=== PATIENT | male | born 1950 | race Caucasian/White ===

== ENCOUNTER 2016-12-15 02:47 | Inpatient (IN) | payer BC, MEDICARE ==
[2016-12-15] MEDS ORDERED: ASPIRIN 81 MG CHEW PO STA (02:58)
[2016-12-15] MEDS ORDERED: NITROGLYCERIN SL TABS 0.4 MG TAB SUBLINGUAL STA (02:58)
[2016-12-15 03:23] LABS: Basophils % (A) 1 %; CH 30.5; CHCM 34.7; Eosinophils # (A) 0.2 k/uL (0-0.7); Eosinophils % (A) 4 %; HCT 41.4 % (39.0-53.0); HDW 3.56; HGB 13.9 gm/dL (13.0-17.5); Luc # (Auto) 0.08; Luc % (Auto) 2; Lymphocytes # (A) 1.5 k/uL (1.0-4.8); Lymphocytes % (A) 28 %; MCH 29.7 pg (25.0-35.0); MCHC 33.7 g/dL (31.0-37.0); MCV 88.2 fL (80.0-100.0); Mean Platelet Volume 6.9; Monocytes # (A) 0.4 k/uL (0-1.0); Monocytes % (A) 7 %; Neutrophils # (A) 3.3 k/uL (1.3-7.7); Neutrophils % (A) 60 %; Poikilocytosis Slight; RBC 4.69 m/uL (4.30-5.90); RDW 14.1 % (11.5-15.5); WBC 5.5 k/uL (3.8-10.6); WBC (Perox) 5.56
[2016-12-15 03:31] LABS: ALT 47 U/L (21-72); AST 19 U/L (17-59); Alkaline Phosphatase 70 U/L (38-126); Anion Gap 15 mmol/L; Blood Urea Nitrogen 17 mg/dL (9-20); Calcium 8.9 mg/dL (8.4-10.2); Carbon Dioxide 24 mmol/L (22-30); Chloride 105 mmol/L (98-107); Glucose 292 mg/dL (74-99); Magnesium 1.8 mg/dL (1.6-2.3); Non-African American GFR(MDRD) >60 (>60 ml/min/1.73 sqM); Potassium 4.1 mmol/L (3.5-5.1); Sodium 144 mmol/L (137-145); Total Bilirubin 0.7 mg/dL (0.2-1.3); Total Protein 6.8 g/dL (6.3-8.2)
[2016-12-15 03:41] LABS: Creatine Kinase 77 U/L (55-170)
[2016-12-15 03:54] LABS: Creatine Kinase MB 0.6 ng/mL (0.0-2.4); Troponin I <0.012 ng/mL (0.000-0.034)
--- NOTE | 2016-12-15 04:38 | XR ---
EXAMINATION TYPE: XR chest 1V portable DATE OF EXAM: 12/15/2016 4:00 AM COMPARISON: November 03, 2016 HISTORY: Chest pain shortness of breath few days TECHNIQUE: Single frontal view of the chest is obtained. FINDINGS: Mild perihilar opacities are noted with suggestion of mild pulmonary edema. There is no focal pneumonia pleural effusion, or pneumothorax seen. The cardiac silhouette size is w ithin normal limits. The osseous structures are intact. IMPRESSION: 1. Mild pulmonary edema. 2. No focal pneumonia.
[2016-12-15] MEDS ORDERED: NITROGLYCERIN SL TABS 0.4 MG TAB SUBLINGUAL PRN (05:50)
--- NOTE | 2016-12-15 06:05 | ED ---
Chest Pain HPI - General Chief Complaint: Chest Pain Stated Complaint: Chest Pain/SOB Time Seen by Provider: 12/15/16 02:57 Source: patient, RN notes reviewed Mode of arrival: wheelchair Limitations: no limitations - History of Present Illness Initial Comments: This patient is a 66-year-old man who presents with complaint that he was having some substernal left chest pain, pressure, moderate intensity, that came on tonight while he was trying to sleep. This was associated with feeling like he couldn't catch his breath. He states that things have improved somewhat since the onset of the symptoms but the pain had not completely resolved so he decided to be seen here. MD Complaint: chest pain -: hour(s) Onset: during rest Pain Location: left chest Quality: heaviness Consistency: constant Improves With: nothing Worsens With: nothing Anginal Symptoms: dyspnea Treatments Prior to Arrival: none - Related Data Home Medications Medication Instructions Recorded Confirmed Atorvastatin [Lipitor] 80 mg PO HS 11/03/16 12/15/16 [place]-3 Fatty Acids/Fish Oil [Fish 2 cap PO DAILY 11/03/16 12/15/16 Oil 1,000 mg Softgel] glipiZIDE [Glucotrol] 2.5 mg PO AC-BID 11/03/16 12/15/16 Atenolol [Tenormin] 50 mg PO DAILY 11/05/16 12/15/16 Lisinopril [Zestril] 2.5 mg PO HS 11/05/16 12/15/16 Aspirin EC [Ecotrin Low Dose] 81 mg PO DAILY 12/15/16 12/15/16 Indomethacin [Indocin] 50 mg PO BID 12/15/16 12/15/16 Previous Rx's Medication Instructions Recorded Nitroglycerin Sl Tabs [Nitrostat] 0.4 mg SUBLINGUAL Q5M PRN #35 tab 11/05/16 Prasugrel [Effient] 10 mg PO DAILY #30 tab 11/05/16 metFORMIN HCL [Glucophage] 500 mg PO BID #0 11/05/16 Allergies Allergy/AdvReac Type Severity Reaction Status Date / Time Sulfa (Sulfonamide Allergy Swelling Verified 12/15/16 02:53 Antibiotics) sulfamethoxazole Allergy Swelling Verified 12/15/16 02:53 [From Bactrim] trimethoprim [From Bactrim] Allergy Swelling Verified 12/15/16 02:53 Review of Systems ROS Statement: Those systems with pertinent positive or pertinent negative responses have been documented in the HPI. ROS Other: All systems not noted in ROS Statement are negative. Constitutional: Denies: fever, chills Eyes: Denies: vision change Respiratory: Reports: dyspnea. Denies: cough, wheezes Cardiovascular: Reports: as per HPI, chest pain. Denies: palpitations, edema, syncope Gastrointestinal: Denies: abdominal pain, nausea, vomiting, melena, hematochezia Genitourinary: Denies: dysuria Musculoskeletal: Denies: back pain Skin: Denies: rash Neurological: Denies: headache, weakness, numbness EKG Findings - EKG Results: EKG: interpreted by TABATHA, sinus rhythm (Rate approximately 90 bpm), normal axis , normal QRS, normal ST/T, no acute changes Past Medical History Past Medical History: Cancer, Chest Pain / Angina, Diabetes Mellitus, Hyperlipidemia, Hypertension, Myocardial Infarction ([place]), Thyroid Disorder Additional Past Medical History / Comment(s): bladder History of Any Multi-Drug Resistant Organisms: None Reported Past Surgical History: Heart Catheterization With Stent, Orthopedic Surgery Additional Past Surgical History / Comment(s): left hand surgery Date of Last Stent Placement:: 2007 Past Psychological History: No Psychological Hx Reported Smoking Status: Former smoker Past Alcohol Use History: None Reported Past Drug Use History: None Reported - Past Family History Father Family Medical History: Coronary Artery Disease (CAD) General Exam Limitations: no limitations General appearance: alert, in no apparent distress Head exam: Present: atraumatic, normocephalic Eye exam: Present: normal appearance. Absent: scleral icterus, conjunctival injection ENT exam: Present: normal oropharynx Neck exam: Present: normal inspection Respiratory exam: Present: normal lung sounds bilaterally. Absent: respiratory distress, wheezes, rales, rhonchi, stridor, chest wall tenderness Cardiovascular Exam: Present: regular rate, normal rhythm, normal heart sounds. Absent: systolic murmur, diastolic murmur, rubs, gallop GI/Abdominal exam: Present: soft. Absent: distended, tenderness, guarding, rebound Extremities exam: Present: normal inspection, normal capillary refill. Absent: pedal edema, calf tenderness Back exam: Present: normal inspection. Absent: CVA tenderness (R), CVA tenderness (L) Skin exam: Present: warm, dry, intact, normal color. Absent: rash, cyanosis, diaphoretic, erythema, petechiae, pallor, mottled Course Vital Signs 12/15/16 12/15/16 02:50 03:24 Temperature 98.0 F Pulse Rate 96 89 Respiratory 18 20 Rate Blood Pressure 200/95 179/91 O2 Sat by Pulse 97 Oximetry Disposition Clinical Impression: Chest pain Disposition: ADMITTED IP TO THIS HOSP Condition: Fair
[2016-12-15 08:17] VITALS: BMI 33.5
[2016-12-15] MEDS ORDERED: NON-FORMULARY DRUG (Omega-3 Fatty Acids/Fish Oil [Fish Oil 1,000 Mg Softgel] 2 CAP) PO SCH (09:00)
[2016-12-15 10:29] LABS: Troponin I 0.066 ng/mL (0.000-0.034)
--- NOTE | 2016-12-15 11:31 | P.CRDCN ---
History of Present Illness Consult reason: chest pain, shortness of breath History of present illness: Male patient admitted with mild shortness of breath and vague discomfort OR chest. The discomfort is very different from what he experienced in October 2016 when he had coronary stenting to the left circumflex which had a critical stenosis of the mid left circumflex At this time he looks comfortable he does not have any chest discomfort or undue shortness of breath no dizziness lightheadedness palpitations Review of systems: No fever chills or rigors, no cough, phlegm or expectoration , no nausea, vomiting or diarrhea, no hematuria, dysuria, no musculoskeletal complaints, no strokes or seizures, no skin lesions. On examination his blood pressure is 133/74 mmHg temperature 97.7 respirations normal but pressure 179/91 and 138/72 mmHg Heart sounds are normal Breath sounds are normal Abdomen is soft No JVD No lower extremity edema No murmurs or gallops No rhonchi no crackles Impression atypical chest discomfort or shortness of breath, first cardiac enzyme is normal second cardiac enzyme is abnormal at 0.66 ECG is normal no definite ST segment abnormalities noted Known coronary artery disease status post stenting of the critical stenosis of the mid left circumflex Normal LV function by 2-D echo in the past RV is mildly enlarged Diabetes adult-onset Hypertension Dyslipidemia Chemical evidence of myocardial injury Plan Serial cardiac enzymes IV heparin Continue home medications without any changes I would like to see the trend of his cardiac enzymes before making further recommendations and I will speak to Dr. Dr. Albrecht about this on Saturday Past Medical History Past Medical History: Cancer, Chest Pain / Angina, Diabetes Mellitus, Hyperlipidemia, Hypertension, Myocardial Infarction ([place]), Thyroid Disorder Additional Past Medical History / Comment(s): bladder Last Myocardial Infarction Date:: October 2016 History of Any Multi-Drug Resistant Organisms: None Reported Past Surgical History: Heart Catheterization With Stent, Orthopedic Surgery Additional Past Surgical History / Comment(s): left hand surgery Date of Last Stent Placement:: 2007 Past Psychological History: No Psychological Hx Reported Smoking Status: Former smoker Past Alcohol Use History: None Reported Past Drug Use History: None Reported - Past Family History Father Family Medical History: Coronary Artery Disease (CAD) Medications and Allergies Home Medications Medication Instructions Recorded Confirmed Type Atorvastatin [Lipitor] 80 mg PO HS 11/03/16 12/15/16 History [place]-3 Fatty Acids/Fish Oil [Fish 2 cap PO DAILY 11/03/16 12/15/16 History Oil 1,000 mg Softgel] glipiZIDE [Glucotrol] 2.5 mg PO AC-BID 11/03/16 12/15/16 History Atenolol [Tenormin] 50 mg PO DAILY 11/05/16 12/15/16 History Lisinopril [Zestril] 2.5 mg PO HS 11/05/16 12/15/16 History Aspirin EC [Ecotrin Low Dose] 81 mg PO DAILY 12/15/16 12/15/16 History Indomethacin [Indocin] 50 mg PO BID 12/15/16 12/15/16 History Allergies Allergy/AdvReac Type Severity Reaction Status Date / Time Sulfa (Sulfonamide Allergy Swelling Verified 12/15/16 02:53 Antibiotics) sulfamethoxazole Allergy Swelling Verified 12/15/16 02:53 [From Bactrim] trimethoprim [From Bactrim] Allergy Swelling Verified 12/15/16 02:53 Physical Exam Vitals: Vital Signs Temp Pulse Pulse Resp BP BP Pulse Ox 12/15/16 08:00 20 12/15/16 07:30 97.7 F 70 16 133/74 95 12/15/16 06:45 97.1 F L 71 20 138/72 99 Intake and Output 12/14/16 12/15/16 12/15/16 22:59 06:59 14:59 Other: Voiding Method Toilet Weight 108.6 kg Patient Weight 12/16/16 06:59 Weight 108.6 kg Results 12/15/16 03:13 12/15/16 03:13 Cardiac Enzymes 12/15/16 Range/Units 09:12 CK-MB (CK-2) 1.0 (0.0-2.4) ng/mL Troponin I 0.066 H* (0.000-0.034) ng/mL Current Medications Generic Name Dose Route Start Last Admin Trade Name Freq PRN Reason Stop Dose Admin Aspirin 325 mg 12/16/16 09:00 Aspirin PO DAILY [facility] Atenolol 50 mg 12/15/16 09:00 Tenormin PO DAILY [facility] Atorvastatin Calcium 80 mg 12/15/16 21:00 Lipitor PO HS [facility] Glipizide 2.5 mg 12/15/16 07:30 Glucotrol PO AC-BID [facility] Lisinopril 2.5 mg 12/15/16 21:00 Zestril PO HS [facility] Metformin HCl 500 mg 12/15/16 07:30 Glucophage PO BID-W/MEALS [facility] Nitroglycerin 0.4 mg 12/15/16 05:50 Nitrostat SUBLINGUAL Q5M PRN Chest Pain Non-Formulary Medication 2 cap 12/15/16 09:00 [place]-3 Fatty Acids/Fish Oil [Fish Oil 1,000 Mg Softgel] PO DAILY [facility] Prasugrel 10 mg 12/15/16 09:00 Effient PO DAILY [facility] Intake and Output 12/14/16 12/15/16 12/15/16 22:59 06:59 14:59 Other: Voiding Method Toilet Weight 108.6 kg Patient Weight 12/16/16 06:59 Weight 108.6 kg
[2016-12-15] MEDS: metFORMIN 500 MG TAB PO SCH ×2 (11:32→18:06)
[2016-12-15] MEDS: ATENOLOL 50 MG TAB PO SCH (11:32)
[2016-12-15] MEDS: PRASUGREL 10 MG TAB PO SCH (11:32)
[2016-12-15 11:47] LABS: Glucose,Whole Blood 131 mg/dL (75-99)
[2016-12-15] MEDS ORDERED: HEPARIN SODIUM,PORCINE 5,000 UNIT/ML 1 ML VIAL IV ONE (11:50)
[2016-12-15] MEDS ORDERED: HEPARIN SODIUM,PORCINE 5,000 UNIT/ML 1 ML VIAL IV PRN (11:50)
[2016-12-15] MEDS: HEPARIN SODIUM,PORCINE/D5W PMX 25,000 UNIT in DEXTROSE/WATER 1 500ML.BAG IV SCH (12:32)
[2016-12-15] MEDS: predniSONE 20 MG TAB PO SCH (14:26)
[2016-12-15 16:44] LABS: Creatine Kinase MB 0.8 ng/mL (0.0-2.4)
[2016-12-15 16:58] LABS: Troponin I 0.055 ng/mL (0.000-0.034)
--- NOTE | 2016-12-15 17:16 | HP ---
DATE OF ADMISSION: 12/15/2016 PRESENTING COMPLAINT: Chest pain. HISTORY OF PRESENTING COMPLAINT: This is a 66-year-old patient of Dr. Telles, the patient was here on 11/03/2016. Patient at that time had an acute non-ST elevation myocardial infarction, patient did have a cardiac catheterization intervention to the circumflex. The patient's other stable chronic medical conditions include diabetes mellitus type 2, hyperlipidemia, hypertension, and COPD. The patient states for the last few days feeling a bit slightly short of breath, especially when he was laying down and then had an episode of chest pain going across, felt shaky, dizzy and decided to come in. Patient exercise tolerance ( ) is fine. The patient in the presence of his neighbor, lady friend. REVIEW OF SYSTEMS: CONSTITUTIONAL: Tired. HEENT: None. RESPIRATORY: Occasional wheezing. CARDIOVASCULAR: As above. GASTROINTESTINAL: None. GENITOURINARY: None. MUSCULOSKELETAL: None. Dermatological: None. HEMATOLOGICAL: None. LYMPHATIC: None. PSYCHIATRY: None. NEUROLOGICAL: None. PAST MEDICAL HISTORY: Cardiac cath with stent 8 years ago and over a month ago, left hand surgery. SOCIAL HISTORY: No alcohol history. Was an ex-smoker. Lives by himself he says. Family history of coronary artery disease. HOME MEDICATIONS: 1. Metformin 500 mg p.o. b.i.d. 2. Glucotrol 2.5 p.o. b.i.d. 3. Effient 10 mg p.o. daily. 4. Fish oil 2 capsules p.o. daily. 5. Nitrostat 0.4 sublingual q.5 p.r.n. 6. Zestril 2.5 p.o. q.h.s. 7. Indocin 50 mg p.o. b.i.d. 8. Lipitor 80 mg q.h.s. 9. Tenormin 50 mg p.o. daily. 10. Aspirin 81 mg daily. ALLERGIES TO SULFUR, BACTRIM. On examination vital signs on presentation: Temperature 98, pulse 96, respiratory rate 18, blood pressure 200/95. Repeat blood pressure down to 130/72, pulse ox 99% on room air. GENERAL APPEARANCE: Well built, BMI of 32.4. Lying in bed, comfortable. EYES: Pupils equal. Conjunctivae normal. HEENT: External appearance of nose and ears normal. Oral cavity normal. NECK: JVD not raised. Mass not palpable. RESPIRATORY: Effort normal. Lungs are clear. CARDIOVASCULAR: First and second sounds normal. No edema. ABDOMEN: Soft, nontender. Liver and spleen not palpable. LYMPHATIC: No lymph nodes palpable in the neck and axillae. PSYCHIATRY: Alert and oriented times three. Mood and affect normal. MUSCULOSKELETAL: Redness, inflammation, local tenderness the right first MCP joint. Investigations: White count 5.4, hemoglobin 13.9, potassium 4.1. BUN and creatinine normal. Accu-Cheks noted. Troponin was 0.012, 0.66. EKG shows normal sinus rhythm. ASSESSMENT: 1. Unstable angina in a patient with known coronary disease with stent to the circumflex in October of this year. Now she presents with cardiac sounding presentation where troponin started to creep up. 2. Coronary artery disease with recent stent to the circumflex on 11/03/2016. 3. Obesity, body mass index greater than 30. 4. Diabetes mellitus type 2 on oral hypoglycemic. 5. Hyperlipidemia, chronic. 6. Essential hypertension, chronic, controlled. 7. Chronic obstructive pulmonary disease in an ex-smoker. 8. Acute gout to the right first metacarpal pharyngeal joint. PLAN: Patient is put on IV heparin. Home medications are resumed. Cardiology was consulted. We will see how the troponin goes. Given the negative effects of NSAIDS, we will stop the patient Indocin right now and use a burst of steroids. Care was discussed with the patient and his friend at the bedside. Home medications will be continued. The patient will need to be inpatient for at least 48 hours of inpatient stay.
[2016-12-15 17:47] LABS: Glucose,Whole Blood 125 mg/dL (75-99)
[2016-12-15 20:28] LABS: Glucose,Whole Blood 253 mg/dL (75-99)
[2016-12-15] MEDS: ATORVASTATIN 80 MG TAB PO SCH (21:00)
[2016-12-15] MEDS: LISINOPRIL 2.5 MG TAB PO SCH (21:00)
[2016-12-16 03:47] LABS: Cholesterol 102 mg/dL (<200); HDL Cholesterol 29 mg/dL (40-60); Triglycerides 107 mg/dL (<150)
[2016-12-16 07:37] LABS: Glucose,Whole Blood 125 mg/dL (75-99)
[2016-12-16] MEDS: predniSONE 20 MG TAB PO SCH (07:43)
[2016-12-16] MEDS: ASPIRIN 325 MG TAB PO SCH (07:43)
[2016-12-16] MEDS: PRASUGREL 10 MG TAB PO SCH (07:43)
[2016-12-16] MEDS: metFORMIN 500 MG TAB PO SCH ×2 (07:43→16:45)
[2016-12-16] MEDS: ATENOLOL 50 MG TAB PO SCH (08:34)
[2016-12-16 12:21] LABS: Glucose,Whole Blood 153 mg/dL (75-99)
[2016-12-16 13:18] LABS: Hemoglobin A1C 5.9 % (4.2-6.1)
--- NOTE | 2016-12-16 14:52 | P.PN ---
Subjective Principal diagnosis: Patient had another episode of shortness of breath with vague discomfort but this was fairly brief. He was still on IV heparin I sent off for cardiac enzymes and there is a definite and a very small rise followed by a fall in the troponin levels Review of systems On examination Vitals are stable No JVD no thyromegaly no carotid bruits Normal S1 normal S2, normal heart sounds Breath sounds are normal no rhonchi no crackles equal breath sounds bilaterally Abdomen is soft nontender Extremities warm no edema Impression Chest discomfort and shortness of breath with associated troponin abnormality as described above Known coronary artery disease status post coronary stenting of a critical stenosis in the mid left circumflex in the past Normal LV, mildly enlarged right ventricle Hypertension Dyslipidemia Adult-onset diabetes Suggest Continue IV heparin and other medications and I will speak to Dr. Dr. Albrecht tomorrow regarding coronary angiography Objective - Vital Signs Vital signs: Vital Signs Temp 98 F 12/16/16 08:00 Pulse 69 12/16/16 12:00 Resp 18 12/16/16 12:00 BP 139/81 12/16/16 12:00 Pulse Ox 95 12/16/16 13:01 Intake & Output 12/15/16 12/16/16 12/16/16 18:59 06:59 18:59 Intake Total 400 Balance 400 Intake: Oral 400 Other: Voiding Method Toilet Toilet Toilet # Voids 3 1 2 - Labs CBC & Chem 7: 12/15/16 03:13 12/15/16 03:13 Labs: Abnormal Lab Results - Last 24 Hours (Table) 12/15/16 12/15/16 12/15/16 Range/Units 15:57 17:43 18:54 APTT 32.0 H (22.0-30.0) sec POC Glucose (mg/dL) 125 H (75-99) mg/dL Troponin I 0.055 H* (0.000-0.034) ng/mL HDL Cholesterol (40-60) mg/dL 12/15/16 12/16/16 12/16/16 Range/Units 20:25 03:12 03:12 APTT 46.6 H (22.0-30.0) sec POC Glucose (mg/dL) 253 H (75-99) mg/dL Troponin I (0.000-0.034) ng/mL HDL Cholesterol 29 L (40-60) mg/dL 12/16/16 12/16/16 Range/Units 07:33 12:19 APTT (22.0-30.0) sec POC Glucose (mg/dL) 125 H 153 H (75-99) mg/dL Troponin I (0.000-0.034) ng/mL HDL Cholesterol (40-60) mg/dL
[2016-12-16 17:31] LABS: Glucose,Whole Blood 187 mg/dL (75-99)
[2016-12-16] MEDS: ATORVASTATIN 80 MG TAB PO SCH (21:08)
[2016-12-16] MEDS: LISINOPRIL 2.5 MG TAB PO SCH (21:08)
[2016-12-16 21:17] LABS: Glucose,Whole Blood 241 mg/dL (75-99)
[2016-12-17] MEDS: HEPARIN SODIUM,PORCINE/D5W PMX 25,000 UNIT in DEXTROSE/WATER 1 500ML.BAG IV SCH (02:52)
[2016-12-17 07:05] LABS: Glucose,Whole Blood 110 mg/dL (75-99)
[2016-12-17] MEDS ORDERED: ATORVASTATIN 80 MG TAB PO STA (09:00)
[2016-12-17] MEDS ORDERED: ALPRAZolam 0.5 MG TAB PO PRN (09:00)
[2016-12-17] MEDS ORDERED: NITROGLYCERIN SL TABS 0.4 MG TAB SUBLINGUAL PRN (09:00)
[2016-12-17] MEDS ORDERED: ALPRAZolam 0.25 MG TAB PO PRN (09:00)
[2016-12-17] MEDS ORDERED: ASPIRIN 325 MG TAB PO STA (09:00)
[2016-12-17] MEDS ORDERED: SODIUM CHLORIDE 0.9% 1,000 ML in EMPTY BAG 1 BAG IV ONE (09:00)
[2016-12-17] MEDS: ASPIRIN 325 MG TAB PO SCH (09:07)
[2016-12-17] MEDS: PRASUGREL 10 MG TAB PO SCH (09:07)
[2016-12-17] MEDS: metFORMIN 500 MG TAB PO SCH ×2 (09:07→16:45)
[2016-12-17] MEDS: ATENOLOL 50 MG TAB PO SCH (09:08)
[2016-12-17] MEDS: predniSONE 20 MG TAB PO SCH (09:24)
--- NOTE | 2016-12-17 10:36 | PN ---
Mr. Randhawa is resting comfortably in bed. He continues to have intermittent episodes of chest discomfort which is very mild midsternal and brief. He did have positive cardiac enzymes with rise and fall trend. Although it was a minor increase. His blood pressure is still elevated at 140s and 150s and therefore I am increasing the dose of Lisinopril to 5 mg p.o. today. On examination, his blood pressure was elevated, 155/92, 144/71 and heart rates are in the 60s. Head and neck examination is normal. He is afebrile. No JVD, thyromegaly, or carotid bruits. Heart sounds S1, S2 are normal and soft. No murmurs. No gallops. Breath sounds are normal. No rhonchi. No crackles. ABDOMEN: Soft, nontender. EXTREMITIES: Warm. No edema. IMPRESSION: 1. Small non-Q wave myocardial infarction associated with chest discomfort and shortness of breath. 2. Hypertension. 3. Prior coronary artery disease, status post coronary stenting. Suggest: Increase Lisinopril to 5 mg p.o. daily. I will schedule him for a coronary angiogram with Dr. Albrecht for tomorrow. I will speak to Dr. Albrecht regarding this tomorrow.
[2016-12-17] MEDS: LISINOPRIL 5 MG TAB PO SCH (11:38)
--- NOTE | 2016-12-17 11:41 | PN ---
DATE OF SERVICE: 12/16/2016 PRESENTING COMPLAINT: Chest pain. INTERVAL HISTORY: This patient with known coronary artery disease presented with unstable angina. Did have a troponin leak awaiting a probable cardiac catheterization. The patient has had a couple more episodes of some shortness of breath. Review of systems done for constitutional, cardiovascular, GI, pulmonary; relevant findings as above. Current medications include IV heparin. On examination, temperature 98, pulse 86, respirations 14, blood pressure 150/84, pulse 92% on room air. GENERAL APPEARANCE: Lying in bed, tired appearing. EYES: Pupils equal. Conjunctivae normal. NECK: JVD not raised. Mass not palpable. RESPIRATORY: Effort normal. Lungs are clear. CARDIOVASCULAR: First and second sounds normal. No edema. ABDOMEN: Soft. Nontender. Liver and spleen not palpable. PSYCHIATRY: Alert and oriented x3. Mood and affect normal. INVESTIGATIONS: Accu-Cheks are noted. Troponin was less than 0.012 and 0.066 and 0.025. ASSESSMENT: 1. Unstable angina in a patient with known coronary artery disease with stent to the circumflex in October of this year, presented with cardiac sounding presentation. 2. Coronary artery disease stent to the circumflex on 11/03/2016. 3. Obesity, body mass index greater than 30. 4. Diabetes mellitus ( ) oral hypoglycemic. 5. Hyperlipidemia, chronic. 6. Essential hypertension. 7. Chronic obstructive pulmonary disease in an ex-smoker. 8. Acute ( ) right first ( ) joint. 9. IV heparin monitoring for therapeutic level. PLAN: Care was discussed with the patient. The patient already on IV heparin. Await possible cardiac catheterization.
[2016-12-17 11:54] LABS: Glucose,Whole Blood 132 mg/dL (75-99)
[2016-12-17 17:00] LABS: Glucose,Whole Blood 195 mg/dL (75-99)
[2016-12-17 20:53] LABS: Glucose,Whole Blood 204 mg/dL (75-99)
[2016-12-17] MEDS: ATORVASTATIN 80 MG TAB PO SCH (22:37)
[2016-12-18 06:15] LABS: Glucose,Whole Blood 107 mg/dL (75-99)
[2016-12-18] MEDS: ATENOLOL 50 MG TAB PO SCH (06:50)
[2016-12-18] MEDS: metFORMIN 500 MG TAB PO SCH (06:50)
[2016-12-18] MEDS: ASPIRIN 325 MG TAB PO SCH (06:50)
[2016-12-18] MEDS: LISINOPRIL 5 MG TAB PO SCH (06:51)
[2016-12-18] MEDS: PRASUGREL 10 MG TAB PO SCH (06:51)
[2016-12-18] MEDS: predniSONE 20 MG TAB PO SCH (06:51)
--- NOTE | 2016-12-18 07:07 | PN ---
DATE OF SERVICE: 12/17/2016 PRESENTING COMPLAINT: Chest pain. INTERVAL HISTORY: This patient with known coronary artery disease presented with unstable angina. Did have a troponin leak. Awaiting cardiac catheterization. Patient did get up and walk this morning. Had another episode of chest pain. Currently sitting in bed. Review of systems done for constitutional, cardiovascular, GI, pulmonary; relevant findings as above. Current medications are reviewed. On examination, temperature 97.5, pulse 75, respirations 18, blood pressure 153/82, pulse ox 96% on room air. GENERAL APPEARANCE: Sitting up, comfortable. EYES: Pupils equal. Conjunctivae normal. NECK: JVD not raised. Mass not palpable. RESPIRATORY: Effort normal. Lungs are clear. CARDIOVASCULAR: First and second sounds normal. No edema. ABDOMEN: Soft, nontender. Liver and spleen not palpable. PSYCHIATRY: Alert and oriented x3. Mood and affect normal. INVESTIGATIONS: No blood work from today. ASSESSMENT: 1. Unstable angina in a patient with known coronary artery disease with known history of cardiac cath with a known stent to the circumflex in October of 2016. 2. Obesity, body mass index greater than 30. 3. Diabetes mellitus type 2, chronically on oral hypoglycemic. 4. Hyperlipidemia, chronic. 5. Essential hypertension. 6. Chronic obstructive pulmonary disease in an ex-smoker. 7. Acute gout of right metacarpophalangeal joint, improved. 8. IV heparin monitoring. PLAN: Continue current medication and treatment plan. Await cardiac catheterization.
[2016-12-18] MEDS ORDERED: fentaNYL (PF) 50 MCG/ML 2 ML AMP ONE (11:21)
[2016-12-18] MEDS ORDERED: VERAPAMIL 2.5 MG/ML 2 ML AMP ONE (11:21)
[2016-12-18] MEDS ORDERED: HEPARIN SODIUM 1,000 UNIT/ML VIAL ONE (11:21)
[2016-12-18] MEDS ORDERED: diphenhydrAMINE 50 MG/ML 1 ML VIAL ONE (11:21)
[2016-12-18] MEDS ORDERED: LIDOCAINE 2% INJ 20 MG/ML (20 ML MDV) ONE (11:21)
[2016-12-18] MEDS ORDERED: SODIUM CHLORIDE 0.9% (PF) 10 ML VIAL ONE (11:21)
[2016-12-18 11:58] LABS: Glucose,Whole Blood 160 mg/dL (75-99)
[2016-12-18] MEDS ORDERED: LIDOCAINE 2% INJ 20 MG/ML SQ ONE ×2 (12:13→12:36)
[2016-12-18] MEDS ORDERED: diphenhydrAMINE 50 MG/ML 1 ML VIAL IVP ONE (12:15)
[2016-12-18] MEDS ORDERED: fentaNYL (PF) 50 MCG/ML 2 ML AMP IV ONE (12:16)
[2016-12-18] MEDS ORDERED: SODIUM CHLORIDE 0.9% 1,000 ML IV ONE (12:17)
[2016-12-18] MEDS ORDERED: VERAPAMIL SYRINGE (5 MG/10 ML) INTRAARTER ONE (12:21)
[2016-12-18] MEDS ORDERED: MIDAZOLAM 2 MG/2 ML VIAL ONE (12:34)
[2016-12-18] MEDS ORDERED: MIDAZOLAM 2 MG/2 ML VIAL IVP ONE (12:36)
[2016-12-18] MEDS ORDERED: BIVALIRUDIN BOLUS 250 MG/50 ML IV ONE (13:05)
[2016-12-18] MEDS ORDERED: BIVALIRUDIN 250 MG in SODIUM CHLORIDE 0.9% 50 ML IV ONE (13:05)
[2016-12-18] MEDS ORDERED: IOHEXOL 350 MG/ML 100 ML BOTTLE INJ ONE (13:14)
[2016-12-18] MEDS ORDERED: MAG HYDROX/AL HYDROX/SIMETH 30 ML CUP PO PRN (13:19)
[2016-12-18] MEDS ORDERED: ZOLPIDEM 5 MG TAB PO PRN (13:19)
[2016-12-18] MEDS ORDERED: RX INFO: IV CONTRAST WAS GIVEN 1 EACH MISC MISCELLANE PRN (13:19)
[2016-12-18] MEDS ORDERED: NITROGLYCERIN SL TABS 0.4 MG TAB SUBLINGUAL PRN (13:19)
[2016-12-18] MEDS ORDERED: SODIUM CHLORIDE 0.9% 1,000 ML IV SCH (13:30)
[2016-12-18 16:58] LABS: Glucose,Whole Blood 222 mg/dL (75-99)
[2016-12-18 20:47] LABS: Glucose,Whole Blood 172 mg/dL (75-99)
[2016-12-18] MEDS: ATORVASTATIN 80 MG TAB PO SCH (21:06)
--- NOTE | 2016-12-18 21:42 | PN ---
DATE OF SERVICE: 12/18/2016 PRESENTING COMPLAINT: Unstable angina. INTERVAL HISTORY: This patient with known coronary artery disease to undergo cardiac catheterization today, I do not have the formal results. Patient did have a stent placed, lying in bed comfortable. is at the bedside. No chest pain. No shortness of breath. Review of systems done for constitutional, cardiovascular; gastroenterology, relevant findings as above. Current medications are reviewed. On examination, temperature 96.8, pulse 60, respiration 6, pulse 74, respiratory rate 16, blood pressure 142/82, pulse 92% on 2 liters. GENERAL APPEARANCE: Sitting up, comfortable. EYES: Pupils equal. Conjunctivae normal. NECK: JVD not raised. Mass not palpable. RESPIRATORY: Effort normal. Lungs are clear. CARDIOVASCULAR: First and second sounds normal. No edema. ABDOMEN: Soft, nontender. Liver and spleen not palpable. PSYCHIATRY: Alert and oriented times three. Mood and affect normal. INVESTIGATIONS: Accu-Cheks are noted. ASSESSMENT: 1. Coronary artery disease with cardiac cath intervention and stent I do not have a formal report. 2. Coronary artery disease with prior history of stent to the circumflex in November 09. 3. Obesity, body mass index greater than 30. 4. Diabetes mellitus type 2, chronically on oral hypoglycemic. 5. Hyperlipidemia, chronic. 6. Essential hypertension. 7. Chronic obstructive pulmonary disease in an ex-smoker. 8. Acute ( ) metacarpal ( ) on presentation: Improved. PLAN: Care was discussed with the patient. Continue current medication and treatment plan. Repeat labs in the morning.
[2016-12-19 06:15] LABS: Glucose,Whole Blood 105 mg/dL (75-99)
--- NOTE | 2016-12-19 06:17 | CC ---
DATE OF SERVICE: Mr. Randhawa is a 66-year-old male with a known history of coronary artery disease, status post percutaneous revascularization of the left circumflex most recently done in October 2016 who presented with symptoms of chest discomfort as well as dyspnea. In view of that, recommendation was made regarding cardiac catheterization. The procedure as well as risks and complications were discussed with the patient who is in full understanding and agreement. 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 He was draped and prepped in the usual conventional fashion. Using Xylocaine anesthesia and Seldinger technique, a 6-Kinyarwanda sheath was introduced in the right radial artery. The wire was advanced into the ascending aorta, but multiple attempts to advance a catheter beyond the brachial area were unsuccessful. At that point, the catheter and the wire were removed and using Seldinger technique a 6-Kinyarwanda sheath was introduced in right femoral artery. Selective right and left coronary angiography was performed using 6-Kinyarwanda 4 bend right and left Cong catheters. Multiple views of the coronary arteries including hemiaxial views were obtained. Following this, a 6-Kinyarwanda tight pigtail catheter was introduced into left ventricle and pressures were calculated. Following that, catheter was removed. Images were reviewed. FINDINGS: LEFT MAIN: This is a large-size vessel bifurcating into the left circumflex and left anterior descending artery. The left main coronary artery is without any obstructive disease. LEFT ANTERIOR DESCENDING ARTERY: This is a large-size vessel reaching toward the apex with a wrap around apex segment. 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 The rest of the vessel has no high-grade stenosis. LEFT CIRCUMFLEX: This is a nondominant vessel, giving rise to 2 obtuse marginal branches. The stented segment in proximal and mid left circumflex are patent. There is no evidence of significant obstructive disease. The flow into the second obtuse marginal branch is TORY-2 flow. There is a lesion at the takeoff , jailed by the stent. RIGHT CORONARY ARTERY: This vessel is totally occluded proximally with ipsilateral as well as contralateral collaterals. LEFT VENTRICULOGRAM: Left ventriculogram was not performed. HEMODYNAMICS: There was no gradient across the aortic valve. The left ventricular end-diastolic pressure was 16 to 20 mmHg. CONCLUSION: 1. Patent stented segment of the left circumflex. 2. Chronically occluded right coronary artery. 3. Moderate significant disease in the mid left anterior descending artery. RECOMMENDATIONS: In view of finding anatomy, I have recommended proceeding with angioplasty and stenting of the LAD. The procedure as well as the risks and complications were discussed with the patient who is in full understanding and agreement. TRAVIS
[2016-12-19 06:29] LABS: Basophils # (A) 0.1 k/uL (0-0.2); Basophils % (A) 1 %; CH 30.2; CHCM 33.6; Eosinophils # (A) 0.1 k/uL (0-0.7); Eosinophils % (A) 1 %; HCT 39.8 % (39.0-53.0); HDW 3.43; HGB 13.2 gm/dL (13.0-17.5); Luc # (Auto) 0.15; Luc % (Auto) 2; Lymphocytes % (A) 24 %; MCH 29.9 pg (25.0-35.0); MCHC 33.1 g/dL (31.0-37.0); MCV 90.4 fL (80.0-100.0); Mean Platelet Volume 6.7; Monocytes # (A) 0.7 k/uL (0-1.0); Monocytes % (A) 8 %; Neutrophils # (A) 5.3 k/uL (1.3-7.7); Neutrophils % (A) 64 %; Poikilocytosis Slight; RDW 14.6 % (11.5-15.5); WBC 8.3 k/uL (3.8-10.6); WBC (Perox) 8.47
--- NOTE | 2016-12-19 06:30 | PTCA ---
DATE OF SERVICE: Mr. Randhawa is a 66-year-old male with a known history of coronary artery disease, who presented with symptoms of chest discomfort and mild elevation of troponin, underwent cardiac catheterization, was found to have a patent stent to the left circumflex with moderate disease in the mid LAD. In view of that, recommendation regarding angioplasty and stenting. The procedure as well as the risks and complications were discussed with the patient who is in full understanding and agreement. PROCEDURE: A 6 Samoan FR4 guiding catheter was introduced system. After cannulating the left main, a 0.014 balanced medium weight J-wire was advanced across the lesion, positioned distally. Subsequently attempt to advance a 2.75 x 15 mm Xience Alpine stent were unsuccessful that stent was removed and an another 0.014 balanced medium weight J-wire was advanced next to the first one in a gricelda fashion. Subsequently the stent was advanced, deployed and post dilated at 14 atmospheres. After the last inflation, after appropriate wait, the balloon and the guidewire withdrawn back in the guiding catheter. Images were obtained and repeated. Those images reveal stable successful stenting. At that point, the guiding catheter, the balloon and the guidewire were removed. The sheath was removed. Hemostasis was obtained with deployment of Angio-Seal. There was no immediate complication. Patient was returned to his room in stable condition. At the same time the sheath of the right radial artery was removed and hemostasis was obtained with deployment of TR band. Of note, that the patient had EKG changes with inflations that resolved at the end of the procedure. He had no significant chest pain. He received Angiomax per protocol as well as intra-arterial verapamil. RESULT: Successful stenting of the mid left anterior descending artery with reduction in stenosis from 60% to 70% to 0% in a calcified segment. RECOMMENDATIONS: Patient will be continued on aspirin, Plavix, beta alex, DIANE inhibitor and statin. The importance of dual antiplatelet treatment was discussed with the patient and his family and who are in full understanding and agreement.
--- NOTE | 2016-12-19 06:32 | LTR ---
December 18, 2016 SANG MORGAN DO RE: EdisEverardo Dear Dr. Morgan: I had the opportunity to perform coronary angiography and coronary angioplasty and stenting on Mr. Randhawa at [facility] on the 18 of December and a full copy of the procedure note will be forwarded to you. In brief, he was found to have no restenosis at the stented left circumflex with moderate significant disease in the LAD and underwent successful stenting of that vessel using a drug-eluting stent. I am hopeful that this procedure will stabilize his status and thank you again for allowing me the opportunity to participate in his care. Please feel free to call for any questions. Sincerely yours, BERT GILLESPIE MD
[2016-12-19 06:37] LABS: Anion Gap 10 mmol/L; Blood Urea Nitrogen 22 mg/dL (9-20); Calcium 8.9 mg/dL (8.4-10.2); Carbon Dioxide 29 mmol/L (22-30); Chloride 105 mmol/L (98-107); Glucose 119 mg/dL (74-99); Non-African American GFR(MDRD) >60 (>60 ml/min/1.73 sqM); Potassium 4.1 mmol/L (3.5-5.1); Sodium 144 mmol/L (137-145)
[2016-12-19 07:45] VITALS: RESP 18
[2016-12-19] MEDS: PRASUGREL 10 MG TAB PO SCH (09:45)
[2016-12-19] MEDS: LISINOPRIL 5 MG TAB PO SCH (09:45)
[2016-12-19] MEDS: ASPIRIN 325 MG TAB PO SCH (09:45)
[2016-12-19] MEDS: predniSONE 20 MG TAB PO SCH (09:46)
[2016-12-19] MEDS: ATENOLOL 50 MG TAB PO SCH (09:46)
[2016-12-19 11:06] VITALS: BP 136/90; PULSE 68; TEMP 97.5
[2016-12-19 11:51] LABS: Glucose,Whole Blood 110 mg/dL (75-99)
--- NOTE | 2016-12-19 15:27 | P.PN ---
Subjective Principal diagnosis: Chest pain This is a 66-year-old patient who follows with Dr. Albrecht in the office. He presented to the hospital with symptoms of chest discomfort. Was taken to the cardiac catheterization lab yesterday where he underwent successful stenting of the mid LAD. Patient was seen and examined this morning, denies any chest or difficulty in breathing. EKG shows normal sinus rhythm with no changes from post-PCI. From cardiology standpoint he may be able to be discharged home today. Objective - Vital Signs Vital signs: Vital Signs Temp 97.5 F L 12/19/16 11:04 Pulse 68 12/19/16 11:04 Resp 18 12/19/16 11:04 BP 136/90 12/19/16 11:04 Pulse Ox 96 12/19/16 07:44 Intake & Output 12/18/16 12/19/16 12/19/16 18:59 06:59 18:59 Intake Total 660.7 900 Output Total 450 Balance 210.7 900 Weight 106.6 kg Intake: IV 20.7 600 Sodium Chloride 0.9% 1, 600 000 ml @ 100 mls/hr IV . Q10H DARWIN Rx#:[id number] Intake, IV Titration 400 Amount Sodium Chloride 0.9% 1, 400 000 ml @ 100 mls/hr IV . Q10H DARWIN Rx#:[id number] Oral 240 300 Output: Urine 450 Other: Voiding Method Toilet Toilet Toilet # Voids 1 2 # Bowel Movements 0 - Exam PHYSICAL EXAMINATION: HEENT: Head is atraumatic, normocephalic. Pupils equal, round. Neck is supple. There is no elevated jugular venous pressure. HEART EXAMINATION: Heart S1, S2 normal. No murmur or gallop heard. CHEST EXAMINATION: Lungs are clear to auscultation and precussion. No chest wall tenderness is noted on palpation or with deep breathing. ABDOMEN: Soft, nontender. Bowel sounds are heard. No organomegaly noted. Right radial site clean and dry, good distal pulse, mild ecchymosis. EXTREMITIES: 2+ peripheral pulses with no evidence of peripheral edema and no calf tenderness noted. NEUROLOGIC patient is awake, alert and oriented -3. . - Labs CBC & Chem 7: 12/19/16 05:29 12/19/16 05:29 Labs: Abnormal Lab Results - Last 24 Hours (Table) 12/18/16 12/18/16 12/19/16 Range/Units 16:51 20:45 05:29 BUN 22 H (9-20) mg/dL Glucose 119 H (74-99) mg/dL POC Glucose (mg/dL) 222 H 172 H (75-99) mg/dL 12/19/16 12/19/16 Range/Units 06:14 11:50 BUN (9-20) mg/dL Glucose (74-99) mg/dL POC Glucose (mg/dL) 105 H 110 H (75-99) mg/dL Assessment and Plan (1) Presence of stent in LAD coronary artery Status: Acute (2) HTN (hypertension) Status: Acute (3) Hyperlipemia Status: Acute (4) Chest pain Status: Acute Plan: From cardiology's perspective, patient may be able to be discharged home today. A follow-up appointment has been made with Dr. Albrecht in the office. Patient will be discharged home on aspirin 325 mg daily, Tenormin 50 mg daily, Lipitor 80 mg daily, Zestril 5 mg daily, Effient 10 mg daily, and sublingual nitroglycerin as needed for chest pain. DNP note has been reviewed, I agree with a documented findings and plan of care. Patient was seen and examined.
--- NOTE | 2016-12-21 10:18 | DS ---
DATE OF ADMISSION: 12/15/2016 DATE OF DISCHARGE: 12/19/2016 FINAL DIAGNOSES: 1. Possible non- Q wave acute myocardial infarction on presentation in a patient with known coronary artery disease. 2. Coronary artery disease with prior history of stent to the circumflex in October 2016. 3. Obesity, body mass index greater than 30. 4. Diabetes mellitus type 2, on oral hypoglycemic. 5. Hyperlipidemia, chronic. 6. Essential hypertension. 7. Chronic obstructive pulmonary disease in an ex-smoker. 8. Acute gout in the right first metacarpophalangeal joint on presentation. CONSULTATION: Dr. Gibran Chandra from cardiology; Dr. Albrecht from interventional cardiology. HOSPITAL COURSE: This patient presented with cardiac sounding presentation. Patient's troponin went from less than 0.12 up to 0.66. Patient's LDL came back 52. Intervention was carried out to LAD with successful stenting by Dr. Albrecht. On the day of discharge, patient with no chest pain. On exam, lungs are clear. CARDIOVASCULAR: First and second sounds normal. Okayed by Cardiology to discharge home. Patient asymptomatic up and about. DISCHARGE MEDICATIONS: 1. Lipitor 80 mg q.h.s. 2. Fish oil 1000 mg 2 capsules p.o. daily. 3. Glucotrol 2.5 mg p.o. b.i.d. 4. Tenormin 50 mg p.o. daily. 5. Effient 10 mg p.o. daily. 6. Glucophage 500 mg p.o. b.i.d. 7. Aspirin 81 mg p.o. daily. 8. Zestril 5 mg p.o. daily. 9. Nitrostat 0.4 sublingual q.5 p.r.n. Follow up with Dr. Albrecht in one week. Follow up with Dr. Telles in one week.
== END 2016-12-19 14:03 | disposition home or self-care (01) | DRG 247 ==
LOC: EC 02:47 → 3SUR 05:50 → 3OBS 06:32 → OBSVTOIN 13:21 → 6SEL 12-17 18:21
PROVIDERS: ADMIT Hospitalist; ATTEND Hospitalist
PROC: B2111ZZ Fluoroscopy of Multiple Coronary Arteries using Low Osmolar Contrast (ICD-10-PCS; 2016-12-18)
PROC: 027034Z Dilation of Coronary Artery, One Artery with Drug-eluting Intraluminal Device, Percutaneous Approach (ICD-10-PCS; principal; 2016-12-18 12:30)
PROC: 4A023N7 Measurement of Cardiac Sampling and Pressure, Left Heart, Percutaneous Approach (ICD-10-PCS; 2016-12-18 12:30)
DX: I25.110 Atherosclerotic heart disease of native coronary artery with unstable angina pectoris (principal); J44.9 Chronic obstructive pulmonary disease, unspecified; I10 Essential (primary) hypertension; E07.9 Disorder of thyroid, unspecified; E11.9 Type 2 diabetes mellitus without complications; E66.9 Obesity, unspecified; E78.5 Hyperlipidemia, unspecified; I25.2 Old myocardial infarction; M10.9 Gout, unspecified; Z79.82 Long term (current) use of aspirin; Z79.84 Long term (current) use of oral hypoglycemic drugs; Z79.899 Other long term (current) drug therapy; Z79.02 Long term (current) use of antithrombotics/antiplatelets; Z88.1 Allergy status to other antibiotic agents; Z88.2 Allergy status to sulfonamides; Z87.891 Personal history of nicotine dependence; Z95.5 Presence of coronary angioplasty implant and graft; Z85.9 Personal history of malignant neoplasm, unspecified; Z68.32 Body mass index [BMI] 32.0-32.9, adult; Z82.49 Family history of ischemic heart disease and other diseases of the circulatory system
CPT/HCPCS: 36415; 71010; 80048; 80053; 80061; 82550; 82553; 83036; 83735; 83880; 84484; 85025; 85347; 85730; 93005; 93458; 94760; 96365; 96376; 99285

== ENCOUNTER → 2018-10-13 | Day surgery (SDC) | payer MEDICARE ==
[~2018-10-13] MED LIST: ALPRAZolam 0.25 MG TAB PO ONE; HYDROmorphone 1 MG/ML 1 ML SYRINGE IVP PRN
[2018-10-13 09:08] VITALS: TEMP 97.3
[2018-10-13 09:25] LABS: Mean Platelet Volume 6.3; Platelet Count 266 k/uL (150-450)
[2018-10-13 09:32] LABS: INR 1.1 (<1.2); Prothrombin Time 10.8 sec (9.0-12.0)
[2018-10-13 10:36] VITALS: RESP 16
--- NOTE | 2018-10-13 15:01 | US ---
EXAMINATION TYPE: US biopsy liver DATE OF EXAM: 10/13/2018 HISTORY: Abnormal results liver function studies PROCEDURE: Maximal barrier technique was utilized. After informed consent, the skin overlying a suit able path to the left lobe liver was localized using ultrasound, the skin was prepped and draped. Ul trasound was utilized with sterile technique. Lidocaine was used for local anesthesia. A skin juanita m sae with a scalpel. Under direct ultrasound guidance, an 18-gauge needle was advanced into the left lobe of the liver and core biopsy obtained. Hemostasis was achieved. There was no immediate complic ation and patient remained in stable condition. Specimen submitted in formalin to Pathology. IMPRESSION: STATUS POST ULTRASOUND GUIDED CORE BIOPSY OF THE LEFT LOBE OF THE LIVER, PATHOLOGY ADELAIDE Garcia PERFORMED BY THE UNDERSIGNED.
[2018-10-13 15:23] VITALS: BP 131/75; PULSE 69
== END ==
LOC: RADPROMAIN 08:48
PROVIDERS: ATTEND Internal Medicine Gastroenterology
DX: K83.9 Disease of biliary tract, unspecified (principal); K76.0 Fatty (change of) liver, not elsewhere classified; K82.1 Hydrops of gallbladder; E78.2 Mixed hyperlipidemia; M10.9 Gout, unspecified; E66.9 Obesity, unspecified; Z68.30 Body mass index [BMI] 30.0-30.9, adult; I25.10 Atherosclerotic heart disease of native coronary artery without angina pectoris; Z95.5 Presence of coronary angioplasty implant and graft; Z88.1 Allergy status to other antibiotic agents; Z88.2 Allergy status to sulfonamides; Z79.84 Long term (current) use of oral hypoglycemic drugs; Z79.02 Long term (current) use of antithrombotics/antiplatelets; Z79.82 Long term (current) use of aspirin; Z79.899 Other long term (current) drug therapy; Z89.029 Acquired absence of unspecified finger(s); Z85.51 Personal history of malignant neoplasm of bladder; Z87.891 Personal history of nicotine dependence; Z86.010 Personal history of colon polyps
CPT/HCPCS: 82947; 85049; 85610; 88313; 88307; 47000; 76942; J1170

== ENCOUNTER 2019-08-14 08:19 | Day surgery (SDC) | payer MEDICARE ==
[2019-08-13 08:15] VITALS: BMI 31.6
[~2019-08-14 08:19] MED LIST changes: -ALPRAZolam 0.25 MG TAB PO ONE; -HYDROmorphone 1 MG/ML 1 ML SYRINGE IVP PRN; +LIDOCAINE 1% 20 ML VIAL (10MG/ML) FOR IV START INTRADERMA PRN
[2019-08-14 08:51] VITALS: TEMP 97.9
[2019-08-14] MEDS: LACTATED RINGERS 1,000 ML IV SCH ×2 (08:51→09:09)
[2019-08-14 08:53] LABS: Glucose,Whole Blood 145 mg/dL (75-99)
[2019-08-14] MEDS ORDERED: PROPOFOL 10 MG/ML 20 ML VIAL IV ONE (09:10)
--- NOTE | 2019-08-14 09:34 | P.PCN ---
Date of Procedure: 08/14/19 Procedure(s) Performed: BRIEF HISTORY: Patient is a 68-year-old pleasant male scheduled for an elective colonoscopy as a part of evaluation of prior history of colon polyps PROCEDURE PERFORMED: Colonoscopy with snare polypectomy PREOPERATIVE DIAGNOSIS: History of colon polyps. IV sedation per Anesthesia. PROCEDURE: After informed consent was obtained, the patient, was brought into the endoscopy unit. IV sedation was administered by Anesthesia under continuous monitoring. Digital rectal examination was normal. Initially the Olympus CF-160 flexible video colonoscope was then inserted in the rectum, gradually advanced into the cecum without any difficulty. Careful examination was performed as the scope was gradually being withdrawn. Ileocecal valve and the appendiceal orifice were visualized and appeared normal. Prep was excellent. Mucosa of the cecum, ascending colon, appeared normal. In the transverse colon there was a 1 cm broad-based polyp removed by snare polypectomy. The rest of the transverse colon, descending colon appeared normal. In the sigmoid colon there was a 5 mm and 1 cm broad-based polyps removed by snare polypectomy., sigmoid colon, and rectum appeared normal. Retroflexion was performed in the rectum and no lesions were seen. Scattered sigmoidal diverticulosis seen. The patient tolerated the procedure well. IMPRESSION: 1 cm transverse colon polyp serous posterior polypectomy 5 mm and 1 cm; sigmoid polyp status post polypectomy Scattered sigmoid diverticulosis . RECOMMENDATIONS: Findings of this examination were discussed with the patient as well as his family. He was advised to follow with the biopsy results. If the biopsy shows an adenoma he can have a repeat colonoscopy in 3 years.
[2019-08-14 09:54] VITALS: BP 121/74; PULSE 68; RESP 18
== END 2019-08-14 10:04 | disposition home or self-care (01) ==
LOC: ORWHC2ENDO 08:19
PROVIDERS: ATTEND Internal Medicine Gastroenterology
DX: Z12.11 Encounter for screening for malignant neoplasm of colon (principal); D12.3 Benign neoplasm of transverse colon; D12.5 Benign neoplasm of sigmoid colon; K57.30 Diverticulosis of large intestine without perforation or abscess without bleeding; Z86.010 Personal history of colon polyps; Z91.041 Radiographic dye allergy status; I25.10 Atherosclerotic heart disease of native coronary artery without angina pectoris; I10 Essential (primary) hypertension; E78.5 Hyperlipidemia, unspecified; E11.9 Type 2 diabetes mellitus without complications; Z85.51 Personal history of malignant neoplasm of bladder; Z79.84 Long term (current) use of oral hypoglycemic drugs; Z79.82 Long term (current) use of aspirin; Z79.899 Other long term (current) drug therapy
CPT/HCPCS: 88305; 45385; J2704

== ENCOUNTER 2020-07-30 13:15 | Emergency (ER) | payer OTHER, MEDICARE ==
[2020-07-30 13:21] VITALS: RESP 18
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
[2020-07-30 13:55] LABS: Basophils % (A) 1 %; Eosinophils # (A) 0.3 k/uL (0-0.7); Eosinophils % (A) 5 %; HCT 43.2 % (39.0-53.0); HGB 14.2 gm/dL (13.0-17.5); Lymphocytes # (A) 1.4 k/uL (1.0-4.8); Lymphocytes % (A) 22 %; MCH 28.5 pg (25.0-35.0); MCHC 32.9 g/dL (31.0-37.0); MCV 86.7 fL (80.0-100.0); Mean Platelet Volume 7.1; Monocytes # (A) 0.4 k/uL (0-1.0); Monocytes % (A) 7 %; Neutrophils # (A) 4.2 k/uL (1.3-7.7); Neutrophils % (A) 65 %; Platelet Count 214 k/uL (150-450); RBC 4.99 m/uL (4.30-5.90); WBC 6.4 k/uL (3.8-10.6)
[2020-07-30 14:05] LABS: ALT 16 U/L (4-49); AST 18 U/L (17-59); African American GFR (CKD) >90 (>60 ml/min/1.73 sqM); Albumin 4.3 g/dL (3.5-5.0); Alkaline Phosphatase 75 U/L (38-126); Anion Gap 7 mmol/L; Blood Urea Nitrogen 17 mg/dL (9-20); Calcium 9.5 mg/dL (8.4-10.2); Carbon Dioxide 27 mmol/L (22-30); Chloride 104 mmol/L (98-107); Creatine Kinase 63 U/L (55-170); Glucose 145 mg/dL (74-99); Magnesium 1.7 mg/dL (1.6-2.3); Non-African American GFR(CKD) >90 (>60 ml/min/1.73 sqM); Potassium 4.4 mmol/L (3.5-5.1); Sodium 138 mmol/L (137-145); Total Bilirubin 0.7 mg/dL (0.2-1.3)
--- NOTE | 2020-07-30 14:23 | XR ---
EXAMINATION TYPE: XR chest 2V DATE OF EXAM: 07/30/2020 COMPARISON: 12/15/2016 HISTORY: High blood pressure. TECHNIQUE: FINDINGS: Heart is normal. Lungs are clear. Costophrenic angles are clear. There are no hilar masses. Bony thorax is intact. IMPRESSION: Normal chest. No change.
[2020-07-30 15:14] VITALS: BP 129/78; PULSE 69; TEMP 97.4
== END 2020-07-30 15:14 | disposition home or self-care (01) ==
LOC: EC 13:15
DX: I10 Essential (primary) hypertension (principal); E86.0 Dehydration; E11.9 Type 2 diabetes mellitus without complications; M79.671 Pain in right foot; M79.672 Pain in left foot; E78.5 Hyperlipidemia, unspecified; I25.2 Old myocardial infarction; Z79.82 Long term (current) use of aspirin; Z79.84 Long term (current) use of oral hypoglycemic drugs; Z87.891 Personal history of nicotine dependence; Z88.2 Allergy status to sulfonamides; Z88.1 Allergy status to other antibiotic agents; Z95.5 Presence of coronary angioplasty implant and graft; Z82.49 Family history of ischemic heart disease and other diseases of the circulatory system; Z85.51 Personal history of malignant neoplasm of bladder
CPT/HCPCS: 36415; 71046; 80053; 82550; 83735; 84484; 85025; 85379; 93005; 99284

== ENCOUNTER → 2020-08-20 | Outpatient (CLI) | payer OTHER, MEDICARE ==
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
== END | disposition home or self-care (01) ==
LOC: RADMRIMAIN 09:04
PROVIDERS: ATTEND Orthopaedic Surgery
DX: M25.471 Effusion, right ankle (principal); M25.572 Pain in left ankle and joints of left foot

== ENCOUNTER 2020-10-28 07:23 | Day surgery (SDC) | payer MEDICARE ==
[2020-10-25 16:28] VITALS: BMI 30.7
[~2020-10-28 07:23] MED LIST changes: +LACTATED RINGERS 1,000 ML IV SCH; +LIDOCAINE 1% (10MG/ML) FOR IV START INTRADERMA PRN; -LIDOCAINE 1% 20 ML VIAL (10MG/ML) FOR IV START INTRADERMA PRN
[2020-10-28 08:13] VITALS: TEMP 96.9
[2020-10-28 08:25] LABS: Glucose,Whole Blood 138 mg/dL (75-99)
[2020-10-28] MEDS ORDERED: PROPOFOL 10 MG/ML 20 ML VIAL IV ONE (08:47)
--- NOTE | 2020-10-28 09:07 | P.PCN ---
Date of Procedure: 10/28/20 Procedure(s) Performed: BRIEF HISTORY: Patient is a 69-year-old pleasant male scheduled for an elective colonoscopy as a part of evaluation of prior history of colon polyps. PROCEDURE PERFORMED: Colonoscopy with snare polypectomy. PREOPERATIVE DIAGNOSIS: History of colon polyps. IV sedation per Anesthesia. PROCEDURE: After informed consent was obtained, the patient, was brought into the endoscopy unit. IV sedation was administered by Anesthesia under continuous monitoring. Digital rectal examination was normal. Initially the Olympus CF-160 flexible video colonoscope was then inserted in the rectum, gradually advanced into the cecum without any difficulty. Careful examination was performed as the scope was gradually being withdrawn. Ileocecal valve and the appendiceal orifice were visualized and appeared normal. Prep was excellent. Mucosa of the cecum, ascending colon, transverse colon, descending colon, normal. In the sigmoid colon there was a 5-6 mm polyp that was removed by snare polypectomy. In the rectum there was a 3 mm and 5 polyp removed by snare polypectomy. Rest of the s igmoid colon, and rectum appeared normal. Retroflexion was performed in the rectum and no lesions were seen. The patient tolerated the procedure well. IMPRESSION: 5-6 mm sigmoid colon polyp status post polypectomy 3 mm and 5 mm rectal polyp status post polypectomy RECOMMENDATIONS: Findings of this examination were discussed with the patient well as his family. He was advised to follow with the biopsy results. If the biopsy shows an adenoma he can have a repeat colonoscopy in 5 years.
[2020-10-28 09:36] VITALS: BP 126/81; PULSE 62; RESP 16
== END 2020-10-28 09:53 | disposition home or self-care (01) ==
LOC: ORWHC2ENDO 07:23
PROVIDERS: ATTEND Internal Medicine Gastroenterology
DX: Z12.11 Encounter for screening for malignant neoplasm of colon (principal); K63.5 Polyp of colon; K62.1 Rectal polyp; Z86.010 Personal history of colon polyps; K21.9 Gastro-esophageal reflux disease without esophagitis; I25.10 Atherosclerotic heart disease of native coronary artery without angina pectoris; I10 Essential (primary) hypertension; I25.2 Old myocardial infarction; E78.5 Hyperlipidemia, unspecified; J44.9 Chronic obstructive pulmonary disease, unspecified; E11.9 Type 2 diabetes mellitus without complications; Z79.84 Long term (current) use of oral hypoglycemic drugs; Z79.82 Long term (current) use of aspirin; Z79.899 Other long term (current) drug therapy; Z88.2 Allergy status to sulfonamides
CPT/HCPCS: 88305; 45385; J2704

== ENCOUNTER → 2022-04-03 | Outpatient (CLI) | payer MEDICARE ==
--- NOTE | 2022-04-03 19:36 | MR ---
EXAMINATION TYPE: MR foot LT wo con DATE OF EXAM: 04/03/2022 COMPARISON: No radiographic correlation available. HISTORY: 71 year old male Left foot pain, swelling, and limited movement for 2 weeks due to injury. TECHNIQUE: Multiplanar, multisequence images of the left forefoot/midfoot were obtained without IV co ntrast. FINDINGS: On coronal series, there is focal subchondral cystic change measuring 5 mm along the medial talar dom e suggesting underlying asymmetric osteoarthritic change at the tibiotalar joint. Some generalized so ft tissue swelling along the forefoot and midfoot. Edema mildly involves the plantar musculature. There is moderate tenosynovitis or fluid along the flexor hallucis longus along the hindfoot level pr ior to the knot of Cosme. There are hammertoes. Mild degenerative change first MTP joint. Additional degenerative change noted at the tibial sesamoid first metatarsal joint with marginal spurring and minimal subchondral cystic c hange. Incidental bipartite tibial sesamoid. Confluent subcutaneous soft tissue edema at the long coronal series. There is some intrinsic fluid signal along some of the plantar ligaments of the mid to hindfoot, refe r to coronal T2 FS image 45. Some focal increased signal within the intramedullary space measuring 8 mm the proximal aspect of the first metatarsal. Possible small hemangioma or tiny bone bruise No acute or healing fracture is seen. Small intermetatarsal bursal effusion at the first-second inter metatarsal space. No abnormal signal changes to clearly indicate a plantar plate tear. Lisfranc ligam ent appears intact. IMPRESSION: 1. Eccentric focal osteoarthritic change along the medial aspect of the tibiotalar joint. 2. Generalized soft tissue swelling. Some mild edema involving the plantar musculature could represen t muscle strain or could be reactive to altered biomechanics. There is some interstitial tearing of a plantar ligament along the mid to hindfoot (coronal T2 FS image 45). 3. Mild first MTP joint OA and additional mild OA at the first metatarsal sesamoid joint. 4. Fluid along the flexor hallucis longus at the mid to hindfoot prior to the knot of Cosme may be ph ysiologic or could represent a mild to moderate tenosynovitis.
== END | disposition home or self-care (01) ==
LOC: RADMRIMAIN 10:10
PROVIDERS: ATTEND Family Medicine
DX: M19.072 Primary osteoarthritis, left ankle and foot (principal); S99.922A Unspecified injury of left foot, initial encounter

== ENCOUNTER → 2022-07-02 | Outpatient (CLI) | payer MEDICARE ==
--- NOTE | 2022-07-03 04:32 | MR ---
EXAMINATION TYPE: MR shoulder RT wo con DATE OF EXAM: 07/02/2022 COMPARISON: None HISTORY: PAIN IN RIGHT SHOULDER Multiplanar multi echo imaging of the right shoulder with no contrast. There is shoulder joint effusion. There is some fluid around the biceps tendon which is thickened and there is complete tear of the subscapularis tendon. The glenoid aguilar appear intact. The supraspinatus tendon shows small areas of intrasubstance tear but no definite full-thickness tear . There is no retraction. The infraspinatus tendon is intact. No fracture seen. There is hypertrophic spurring and increased fluid at the AC joint. There is mild subacromial impingement. The humeral hea d is intact. IMPRESSION: There is complete tear of the subscapularis tendon with some retraction. There is wavy appearance of the tendon. There is increased fluid around the subscapularis muscle. Shoulder joint effusion. No amari dence of full-thickness tear of the supraspinatus tendon. There is minimal subacromial impingement. T here is some mild osteoarthritic narrowing of the glenohumeral joint space.
== END | disposition home or self-care (01) ==
LOC: RADMRIMAIN 06-30 13:45
PROVIDERS: ATTEND Physician Assistant
DX: M75.111 Incomplete rotator cuff tear or rupture of right shoulder, not specified as traumatic (principal); M19.011 Primary osteoarthritis, right shoulder

== ENCOUNTER 2023-07-22 10:48 | Emergency (ER) | payer MEDICARE ==
[2023-07-22 10:56] VITALS: RESP 18; TEMP 97.9
[2023-07-22] MEDS ORDERED: SODIUM CHLORIDE 0.9% 500 ML 500 ML IV STA (10:58)
[2023-07-22] MEDS ORDERED: MECLIZINE 12.5 MG TAB PO STA ×2 (10:58→12:53)
[2023-07-22] MEDS ORDERED: METOCLOPRAMIDE 5 MG/ML 2 ML VIAL IVP STA (10:59)
--- NOTE | 2023-07-22 11:42 | ED ---
Dizziness HPI - General Chief Complaint: Dizziness Stated Complaint: Dizziness Time Seen by Provider: 07/22/23 10:51 Source: patient, EMS, RN notes reviewed Mode of arrival: EMS Limitations: no limitations - History of Present Illness Initial Comments: 72-year-old male presents emergency Department with chief complaint of dizziness. Patient states that he woke up feeling fine states his been worked states became very dizzy, nauseated. Patient states when he closes his eyes and doesn't move symptoms are better. He states it's worse with any movement. Denies any headache, focal weakness, appears chills no chest pain or shortness breath. He states states she's never had any like this in the past. Denies any other associated symptoms. - Related Data Home Medications Medication Instructions Recorded Confirmed Atorvastatin [Lipitor] 10 mg PO 1700 11/03/16 10/28/20 glipiZIDE [Glucotrol] 2.5 mg PO AC-BID 11/03/16 10/28/20 atenoloL [Tenormin] 50 mg PO DAILY 11/05/16 10/28/20 Aspirin EC [Ecotrin Low Dose] 81 mg PO DAILY 12/15/16 10/28/20 amLODIPine [Norvasc] 2.5 mg PO 1600 08/13/17 10/28/20 metFORMIN HCL [Glucophage] 1,000 mg PO QAM 10/06/18 10/28/20 metFORMIN HCL [Glucophage] 500 mg PO 1700 10/06/18 10/28/20 tadalafiL [Cialis] 10 mg PO ONCE PRN 10/06/18 10/28/20 Omeprazole 20 mg PO Q2D 08/13/19 10/28/20 lisinopriL [Zestril] 5 mg PO BID 10/25/20 10/28/20 Previous Rx's Medication Instructions Recorded Nitroglycerin Sl Tabs [Nitrostat] 0.4 mg SUBLINGUAL Q5M PRN #35 tab 12/19/16 Allergies Allergy/AdvReac Type Severity Reaction Status Date / Time Sulfa (Sulfonamide Allergy head and Verified 07/22/23 10:53 Antibiotics) neck pain sulfamethoxazole Allergy head and Verified 07/22/23 10:53 [From Bactrim] neck pain trimethoprim [From Bactrim] Allergy head and Verified 07/22/23 10:53 neck pain Review of Systems ROS Statement: Those systems with pertinent positive or pertinent negative responses have been documented in the HPI. ROS Other: All systems not noted in ROS Statement are negative. Past Medical History Past Medical History: Cancer, Chest Pain / Angina, Diabetes Mellitus, GERD/Reflux, Hyperlipidemia, Hypertension, Myocardial Infarction (RI) Additional Past Medical History / Comment(s): elevated liver enzymes,bladder CA, RI x4 Last Myocardial Infarction Date:: , History of Any Multi-Drug Resistant Organisms: None Reported Past Surgical History: Bladder Surgery, Heart Catheterization With Stent, Orthopedic Surgery Additional Past Surgical History / Comment(s): left hand surgery,heart stents x3,bladder CA removed, PANCREASE. SURGERY Past Anesthesia/Blood Transfusion Reactions: No Reported Reaction Date of Last Stent Placement:: 2016 Past Psychological History: No Psychological Hx Reported Smoking Status: Former smoker Past Alcohol Use History: None Reported Past Drug Use History: None Reported - Past Family History Father Family Medical History: Cancer, Coronary Artery Disease (CAD) Additional Family Medical History / Comment(s): lung Sister(s) Family Medical History: Cancer Additional Family Medical History / Comment(s): BREAST CANCER General Exam Limitations: no limitations General appearance: alert, in no apparent distress Head exam: Present: atraumatic, normocephalic, normal inspection Eye exam: Present: normal appearance, PERRL, EOMI. Absent: scleral icterus, conjunctival injection, periorbital swelling ENT exam: Present: normal exam, normal oropharynx, mucous membranes moist Neck exam: Present: normal inspection, full ROM. Absent: tenderness, me ningismus, lymphadenopathy Respiratory exam: Present: normal lung sounds bilaterally. Absent: respiratory distress, wheezes, rales, rhonchi, stridor Cardiovascular Exam: Present: regular rate, normal rhythm, normal heart sounds. Absent: systolic murmur, diastolic murmur, rubs, gallop, clicks Neurological exam: Present: alert, oriented X3, CN II-XII intact, reflexes normal, other (Finger to nose intact). Absent: motor sensory deficit Course Vital Signs 07/22/23 07/22/23 10:55 13:22 Temperature 97.9 F Pulse Rate 77 79 Respiratory 18 18 Rate Blood Pressure 173/93 126/78 O2 Sat by Pulse 95 95 Oximetry EKG Findings - EKG Comments: EKG Findings:: EKG performed at 10:54 sinus rhythm with a rate of 78 AR 193 QRS 109 QT/QTC 387/421 - EKG Results: EKG: interpreted by TABATHA Medical Decision Making - Medical Decision Making Was pt. sent in by a medical professional or institution (, PA, CUSTOMER ACCOUNT TECHNICIAN, urgent care, hospital, or [place] health care facility...) When possible be specific @ -No Did you speak to anyone other than the patient for history (EMS, parent, family, police, friend...)? What history was obtained from this source @ -No Did you review nursing and triage notes (agree or disagree)? Why? @ -I reviewed and agree with nursing and triage notes Were old charts reviewed (outside hosp., previous admission, EMS record, old EKG, old radiological studies, urgent care reports/EKG's, [place] health care facility records)? Report findings @ -No old charts were reviewed Differential Diagnosis (chest pain, altered mental status, abdominal pain women, abdominal pain men, vaginal bleeding, weakness, fever, dyspnea, syncope, headache, dizziness, GI bleed, back pain, seizure, CVA, palpatations, mental health, musculoskeletal)? @ -Differential Dizziness: Benign paroxysmal positional Vertigo, Menieres disease, otitis media, acoustic neuroma, vertebrobasilar insufficiency, cerebellar stroke, encephalitis, hypovolemic, arrhythmia, coronary artery syndrome, anemia, this is not meant to be an all-inclusive listable EKG interpreted by me (3pts min.). @ -As above X-rays interpreted by me (1pt min.). @ -None done CT interpreted by me (1pt min.). @ -CT of brain shows no acute intracranial process U/S interpreted by me (1pt. min.). @ -None done What testing was considered but not performed or refused? (CT, X-rays, U/S, labs)? Why? @ -None What meds were considered but not given or refused? Why? @ -None Did you discuss the management of the patient with other professionals (professionals i.e. , PA, CUSTOMER ACCOUNT TECHNICIAN, lab, RT, psych nurse, social service agency director, cloth winder, teacher, affirmative action officer, case repairer)? Give summary @ -No Was smoking cessation discussed for >3mins.? @ -No Was critical care preformed (if so, how long)? @ -No Were there social determinants of health that impacted care today? How? (Homelessness, low income, unemployed, alcoholism, drug addiction, transportation, low edu. Level, literacy, decrease access to med. care, custodial, rehab)? @ -No Was there de-escalation of care discussed even if they declined (Discuss DNR or withdrawal of care, Hospice)? DNR status @ -No What co-morbidities impacted this encounter? (DM, HTN, Smoking, COPD, CAD, Cancer, CVA, ARF, Chemo, Hep., AIDS, mental health diagnosis, sleep apnea, morbid obesity)? @ -Hypertension Was patient admitted / discharged? Hospital course, mention meds given and route, prescriptions, significant lab abnormalities, going to OR and other pertinent info. @ -Discharge patient is improved after Antivert, antiemetics patient ultrasound is unremarkable CT was unremarkable. Patient has vertigo and will be discharged in stable condition. Undiagnosed new problem with uncertain prognosis? @ -No Drug Therapy requiring intensive monitoring for toxicity (Heparin, Nitro, Insulin, Cardizem)? @ -No Were any procedures done? @ -No Diagnosis/symptom? @ -Vertigo Acute, or Chronic, or Acute on Chronic? @ -Acute Uncomplicated (without systemic symptoms) or Complicated (systemic symptoms)? @ -[Complicated de effects of treatment? @ -[No]Excerbation, Progression, or Severe Exacerbation? @ -[No]Poes a threat to life or bodily function? How? (Chest pain, USA, RI, pneumonia, PE, COPD, DKA, ARF, appy, cholecystitis, CVA, Diverticulitis, Homicidal, Suicidal, threat to staff... and all critical care pts) @ -[No] - Lab Data Result diagrams: 07/22/23 11:00 07/22/23 11:00 Lab Results 07/22/23 07/22/23 07/22/23 Range/Units 11:00 11:00 11:00 WBC 9.5 (3.8-10.6) k/uL RBC 4.79 (4.30-5.90) m/uL Hgb 14.6 (13.0-17.5) gm/dL Hct 42.6 (39.0-53.0) % MCV 88.8 (80.0-100.0) fL MCH 30.6 (25.0-35.0) pg MCHC 34.4 (31.0-37.0) g/dL RDW 14.0 (11.5-15.5) % Plt Count 209 (150-450) k/uL MPV 8.1 Neutrophils % 61 % Lymphocytes % 27 % Monocytes % 5 % Eosinophils % 4 % Basophils % 0 % Neutrophils # 5.8 (1.3-7.7) k/uL Lymphocytes # 2.6 (1.0-4.8) k/uL Monocytes # 0.5 (0-1.0) k/uL Eosinophils # 0.4 (0-0.7) k/uL Basophils # 0.0 (0-0.2) k/uL Sodium 138 (137-145) mmol/L Potassium 4.2 (3.5-5.1) mmol/L Chloride 104 (98-107) mmol/L Carbon Dioxide 22 (22-30) mmol/L Anion Gap 12 mmol/L BUN 19 (9-20) mg/dL Creatinine 0.87 (0.66-1.25) mg/dL Est GFR (CKD-EPI)AfAm >90 (>60 ml/min/1.73 sqM) Est GFR (CKD-EPI)NonAf 87 (>60 ml/min/1.73 sqM) Glucose 258 H (74-99) mg/dL Calcium 8.7 (8.4-10.2) mg/dL Magnesium 1.4 L (1.6-2.3) mg/dL Total Bilirubin 0.8 (0.2-1.3) mg/dL AST 25 (17-59) U/L ALT 25 (4-49) U/L Alkaline Phosphatase 78 (38-126) U/L Troponin I <0.012 (0.000-0.034) ng/mL Total Protein 7.2 (6.3-8.2) g/dL Albumin 4.4 (3.5-5.0) g/dL Disposition Clinical Impression: Vertigo Disposition: HOME SELF-CARE Condition: Stable Instructions (If sedation given, give patient instructions): Dizziness (ED) Additional Instructions: Please return to the Emergency Department if symptoms worsen or any other concerns. Is patient prescribed a controlled substance at d/c from ED?: No Referrals: Souphis,Shawn, DO [Primary Care Provider] - 1-2 days Time of Disposition: 14:06
[2023-07-22 11:58] LABS: Basophils % (A) 0 %; Eosinophils # (A) 0.4 k/uL (0-0.7); Eosinophils % (A) 4 %; HCT 42.6 % (39.0-53.0); HGB 14.6 gm/dL (13.0-17.5); Lymphocytes # (A) 2.6 k/uL (1.0-4.8); Lymphocytes % (A) 27 %; MCH 30.6 pg (25.0-35.0); MCHC 34.4 g/dL (31.0-37.0); MCV 88.8 fL (80.0-100.0); Mean Platelet Volume 8.1; Monocytes # (A) 0.5 k/uL (0-1.0); Monocytes % (A) 5 %; Neutrophils # (A) 5.8 k/uL (1.3-7.7); Neutrophils % (A) 61 %; Platelet Count 209 k/uL (150-450); RBC 4.79 m/uL (4.30-5.90); WBC 9.5 k/uL (3.8-10.6)
--- NOTE | 2023-07-22 12:05 | CT ---
EXAMINATION TYPE: CT brain wo con DATE OF EXAM: 07/22/2023 COMPARISON: None HISTORY: dizziness CT DLP: 1100.[address] of the brain was performed. The ventricles, basal cisterns and sulci overlying the cerebral convexities demonstrate mild enlargem ent. There is no evidence for intracranial hemorrhage or sulcal effacement. There is decreased attenuation about the periventricular white matter and deep white matter of both c erebral hemispheres, compatible with chronic small vessel ischemia. Differential diagnosis does inclu de demyelination. No mass effects are seen.No midline shift. Osseous calvarium is intact. If symptoms persist consider MRI. IMPRESSION: 1. Age related atrophic and chronic small vessel ischemic change without acute intracranial process s een at this time.
[2023-07-22 12:09] LABS: ALT 25 U/L (4-49); AST 25 U/L (17-59); African American GFR (CKD) >90 (>60 ml/min/1.73 sqM); Albumin 4.4 g/dL (3.5-5.0); Alkaline Phosphatase 78 U/L (38-126); Anion Gap 12 mmol/L; Blood Urea Nitrogen 19 mg/dL (9-20); Calcium 8.7 mg/dL (8.4-10.2); Carbon Dioxide 22 mmol/L (22-30); Chloride 104 mmol/L (98-107); Glucose 258 mg/dL (74-99); Magnesium 1.4 mg/dL (1.6-2.3); Non-African American GFR(CKD) 87 (>60 ml/min/1.73 sqM); Potassium 4.2 mmol/L (3.5-5.1); Sodium 138 mmol/L (137-145); Total Bilirubin 0.8 mg/dL (0.2-1.3); Total Protein 7.2 g/dL (6.3-8.2)
[2023-07-22] MEDS ORDERED: ONDANSETRON 4 MG/2 ML VIAL IVP STA (12:53)
[2023-07-22 13:23] VITALS: BP 126/78; PULSE 79
== END 2023-07-22 14:33 | disposition home or self-care (01) ==
LOC: EC 10:48
DX: R42 Dizziness and giddiness (principal); E11.9 Type 2 diabetes mellitus without complications; E78.5 Hyperlipidemia, unspecified; I10 Essential (primary) hypertension; I25.2 Old myocardial infarction; K21.9 Gastro-esophageal reflux disease without esophagitis; Z79.82 Long term (current) use of aspirin; Z79.84 Long term (current) use of oral hypoglycemic drugs; Z79.899 Other long term (current) drug therapy; Z87.891 Personal history of nicotine dependence; Z88.1 Allergy status to other antibiotic agents; Z95.5 Presence of coronary angioplasty implant and graft; Z88.2 Allergy status to sulfonamides
CPT/HCPCS: 36415; 93005; 80053; 83735; 84484; 85025; 70450; 99285; 96374; 96361 ×2; J2765

== ENCOUNTER 2024-05-05 21:20 | Inpatient (IN) | payer MEDICARE ==
[2024-05-05 21:52] LABS: Basophils # (A) 0.1 k/uL (0-0.2); Basophils % (A) 1 %; Eosinophils # (A) 0.2 k/uL (0-0.7); Eosinophils % (A) 4 %; HCT 47.3 % (39.0-53.0); Lymphocytes # (A) 1.6 k/uL (1.0-4.8); Lymphocytes % (A) 29 %; MCH 29.4 pg (25.0-35.0); MCHC 33.9 g/dL (31.0-37.0); MCV 86.8 fL (80.0-100.0); Mean Platelet Volume 7.4; Monocytes # (A) 0.4 k/uL (0-1.0); Monocytes % (A) 7 %; Neutrophils # (A) 3.1 k/uL (1.3-7.7); Neutrophils % (A) 57 %; Platelet Count 177 k/uL (150-450); Poikilocytosis Slight; RBC 5.44 m/uL (4.30-5.90); RDW 14.8 % (11.5-15.5); WBC 5.5 k/uL (3.8-10.6)
--- NOTE | 2024-05-05 21:59 | XR ---
EXAMINATION TYPE: XR chest 2V DATE OF EXAM: 05/05/2024 9:53 PM CLINICAL INDICATION:Male, 73 years old with history of Chest Pain; [facility] COMPARISON: Chest radiographs from 07/30/2020 TECHNIQUE: XR chest 2V Frontal and lateral views of the chest. FINDINGS: Lungs/Pleura: There is no evidence of pleural effusion, focal consolidation, or pneumothorax. Pulmonary vascularity: Unremarkable. Heart/mediastinum: Cardiomediastinal silhouette is unremarkable. Musculoskeletal: No acute osseous pathology. IMPRESSION: No acute cardiopulmonary disease/process.
[2024-05-05 22:05] LABS: ALT 28 U/L (4-49); AST 25 U/L (17-59); African American GFR (CKD) >90 (>60 ml/min/1.73 sqM); Albumin 4.5 g/dL (3.5-5.0); Alkaline Phosphatase 88 U/L (38-126); Anion Gap 8 mmol/L; Blood Urea Nitrogen 20 mg/dL (9-20); Calcium 9.4 mg/dL (8.4-10.2); Carbon Dioxide 24 mmol/L (22-30); Chloride 107 mmol/L (98-107); Glucose 262 mg/dL (74-99); Magnesium 1.9 mg/dL (1.6-2.3); Non-African American GFR(CKD) 83 (>60 ml/min/1.73 sqM); Sodium 139 mmol/L (137-145); Total Bilirubin 0.7 mg/dL (0.2-1.3); Total Protein 7.3 g/dL (6.3-8.2)
[2024-05-05 22:09] LABS: Prothrombin Time 11.3 sec (10.0-12.5)
[2024-05-05] MEDS ORDERED: NITROGLYCERIN SL TABS 0.4 MG TAB SUBLINGUAL PRN (22:30)
--- NOTE | 2024-05-05 22:37 | ED ---
General Adult HPI - General Chief complaint: Chest Pain Stated complaint: Chest Tightness, Hypertension Time Seen by Provider: 05/05/24 22:03 Source: patient Mode of arrival: ambulatory Limitations: no limitations - History of Present Illness Initial comments: Dictation was produced using [employer] dictation software. please excuse any grammatical, word or spelling errors. Chief Complaint: 73-year-old male presents to the emergency department for hypertension and chest pain History of Present Illness: Patient 73-year-old male with history of coronary artery disease. Patient is status post 3 coronary artery stents were 3 previous MIs. States that he has some pressure in his substernal left chest. States it feels similar to heart attack he had in the past. Patient was doing fine all day today when he did not feel well. Started feel little nauseated with some slight chest pressure. Checked his blood pressure was found to be high. Patient has history of hypertension. The ROS documented in this emergency department record has been reviewed and confirmed by me. Those systems with pertinent positive or negative responses have been documented in the HPI. All other systems are other negative and/or noncontributory. - Related Data Home Medications Medication Instructions Recorded Confirmed Atorvastatin [Lipitor] 10 mg PO 1700 11/03/16 10/28/20 glipiZIDE [Glucotrol] 2.5 mg PO AC-BID 11/03/16 10/28/20 atenoloL [Tenormin] 50 mg PO DAILY 11/05/16 10/28/20 Aspirin EC [Ecotrin Low Dose] 81 mg PO DAILY 12/15/16 10/28/20 amLODIPine [Norvasc] 2.5 mg PO 1600 08/13/17 10/28/20 metFORMIN HCL [Glucophage] 1,000 mg PO QAM 10/06/18 10/28/20 metFORMIN HCL [Glucophage] 500 mg PO 1700 10/06/18 10/28/20 tadalafiL [Cialis] 10 mg PO ONCE PRN 10/06/18 10/28/20 Omeprazole 20 mg PO Q2D 08/13/19 10/28/20 lisinopriL [Zestril] 5 mg PO BID 10/25/20 10/28/20 Previous Rx's Medication Instructions Recorded Nitroglycerin Sl Tabs [Nitrostat] 0.4 mg SUBLINGUAL Q5M PRN #35 tab 12/19/16 Meclizine [Antivert] 25 mg PO TID PRN #15 tab 07/22/23 Ondansetron Odt [Zofran Odt] 4 mg PO Q8HR PRN #10 tab 07/22/23 Allergies Allergy/AdvReac Type Severity Reaction Status Date / Time Sulfa (Sulfonamide Allergy head and Verified 05/05/24 21:24 Antibiotics) neck pain sulfamethoxazole Allergy head and Verified 05/05/24 21:24 [From Bactrim] neck pain trimethoprim [From Bactrim] Allergy head and Verified 05/05/24 21:24 neck pain Review of Systems ROS Statement: Those systems with pertinent positive or pertinent negative responses have been documented in the HPI. ROS Other: All systems not noted in ROS Statement are negative. Past Medical History Past Medical History: Cancer, Chest Pain / Angina, Diabetes Mellitus, GERD/Reflux, Hyperlipidemia, Hypertension, Myocardial Infarction ([place]) Additional Past Medical History / Comment(s): elevated liver enzymes,bladder CA, [place] x4 Last Myocardial Infarction Date:: , History of Any Multi-Drug Resistant Organisms: None Reported Past Surgical History: Bladder Surgery, Heart Catheterization With Stent, Orthopedic Surgery Additional Past Surgical History / Comment(s): left hand surgery,heart stents x3,bladder CA removed, PANCREASE. SURGERY Past Anesthesia/Blood Transfusion Reactions: No Reported Reaction Date of Last Stent Placement:: 2016 Past Psychological History: No Psychological Hx Reported Smoking Status: Former smoker Past Alcohol Use History: None Reported Past Drug Use History: None Reported - Past Family History Father Family Medical History: Cancer, Coronary Artery Disease (CAD) Additional Family Medical History / Comment(s): lung Sister(s) Family Medical History: Cancer Additional Family Medical History / Comment(s): BREAST CANCER General Exam - General Exam Comments Initial Comments: PHYSICAL EXAM: General Impression: Alert and oriented x3, not in acute distress HEENT: Normocephalic atraumatic, extra-ocular movements intact, pupils equal and reactive to light bilaterally, mucous membranes moist. Cardiovascular: Heart regular rate and rhythm Chest: Able to complete full sentences, no retractions, no tachypnea Abdomen: abdomen soft, non-tender, non-distended, no organomegaly Musculoskeletal: Pulses present and equal in all extremities, no peripheral edema Motor: no focal deficits noted Neurological: CN II-XII grossly intact, no focal motor or sensory deficits noted Skin: Intact with no visualized rashes Psych: Normal affect and mood Limitations: no limitations Course Vital Signs 05/05/24 05/05/24 21:22 22:25 Temperature 98 F Pulse Rate 104 H 93 Respiratory 22 16 Rate Blood Pressure 190/89 167/91 O2 Sat by Pulse 97 98 Oximetry EKG Findings - EKG Comments: EKG Findings:: My EKG interpretation: Ventricular rate 100, sinus tachycardia,. 181, cures 100, QTc 398. No HI prolongation, no QTC prolongation, no ST or T- wave changes noted. . Overall, this EKG is unremarkable Medical Decision Making - Medical Decision Making Was pt. sent in by a medical professional or institution (, PA, SATELLITE DISH REPAIRER, urgent care, hospital, or usp...) When possible be specific @ -No Did you speak to anyone other than the patient for history (EMS, parent, family, police, friend...)? What history was obtained from this source @ -No Did you review nursing and triage notes (agree or disagree)? Why? @ -I reviewed and agree with nursing and triage notes Were old charts reviewed (outside hosp., previous admission, EMS record, old EKG, old radiological studies, urgent care reports/EKG's, usp records)? Report findings @ -No old charts were reviewed Differential Diagnosis (chest pain, altered mental status, abdominal pain women, abdominal pain men, vaginal bleeding, musculoskeletal, weakness, fever, dyspnea, syncope, headache, dizziness, GI bleed, back pain, seizure, CVA, palpatations, mental health)? @ -Differential Chest Pain: Stable Angina, Unstable Angina, STEMI, NSTEMI Aortic Dissection, Pneumothorax, Musculoskeletal, Esophageal Spasm GERD, Cholecystitis, Pancreatitis, Zoster, this is not meant to be an all-inclusive list. EKG interpreted by me (3pts min.). @ -See above X-rays interpreted by me (1pt min.). @ -Chest x-ray is nonacute CT interpreted by me (1pt min.). @ -None done U/S interpreted by me (1pt. min.). @ -None done What testing was considered but not performed or refused? (CT, X-rays, U/S, labs)? Why? @ -None What meds were considered but not given or refused? Why? @ -None Did you discuss the management of the patient with other professionals (professionals i.e. ., PA, SATELLITE DISH REPAIRER, lab, RT, psych nurse, director social welfare, process area supervisor, teacher, chief analytics officer, registered nurse hh case manager)? Give summary @ -No Was smoking cessation discussed for >3mins.? @ -No Was critical care preformed (if so, how long)? @ -No Were there social determinants of health that impacted care today? How? (Homelessness, low income, unemployed, alcoholism, drug addiction, transp ortation, low edu. Level, literacy, decrease access to med. care, prison, rehab)? @ -No Was there de-escalation of care discussed even if they declined (Discuss DNR or withdrawal of care, Hospice)? DNR status @ -No What co-morbidities impacted this encounter? (DM, HTN, Smoking, COPD, CAD, Cancer, CVA, ARF, Chemo, Hep., AIDS, mental health diagnosis, sleep apnea, morbid obesity)? @ -History of [place] Was patient admitted / discharged? Hospital course, mention meds given and route, prescriptions, significant lab abnormalities, going to OR and other pertinent info. @ -73-year-old male presents emergency department chest pain hypertension. Vital signs upon arrival are within acceptable limits. EKG is unremarkable for any signs of ischemia or infarction. Patient well-appearing at the bedside. He has atypical chest pain typical features he has multiple high risk factors. Labs are unremarkable. Patient mated office for cardiac monitoring and cardiology consultation Undiagnosed new problem with uncertain prognosis? @ -No Drug Therapy requiring intensive monitoring for toxicity (Heparin, Nitro, Insulin, Cardizem)? @ -No Were any procedures done? @ -No Diagnosis/symptom? Acute, or Chronic, or Acute on Chronic? Uncomplicated (without systemic symptoms) or Complicated (systemic symptoms)? @ -Chest pain Side effects of treatment? @ -No Exacerbation, Progression, or Severe Exacerbation? @ -No Poses a threat to life or bodily function? How? (Chest pain, [place], [place], pneumonia, PE, COPD, DKA, ARF, appy, cholecystitis, CVA, Diverticulitis, Homicidal, Suicidal, threat to staff... and all critical care pts) @ -Yes - Lab Data Result diagrams: 05/05/24 21:38 05/05/24 21:38 Lab Results 05/05/24 05/05/24 05/05/24 Range/Units 21:38 21:38 21:38 WBC 5.5 (3.8-10.6) k/uL RBC 5.44 (4.30-5.90) m/uL Hgb 16.0 (13.0-17.5) gm/dL Hct 47.3 (39.0-53.0) % MCV 86.8 (80.0-100.0) fL MCH 29.4 (25.0-35.0) pg MCHC 33.9 (31.0-37.0) g/dL RDW 14.8 (11.5-15.5) % Plt Count 177 (150-450) k/uL MPV 7.4 Neutrophils % 57 % Lymphocytes % 29 % Monocytes % 7 % Eosinophils % 4 % Basophils % 1 % Neutrophils # 3.1 (1.3-7.7) k/uL Lymphocytes # 1.6 (1.0-4.8) k/uL Monocytes # 0.4 (0-1.0) k/uL Eosinophils # 0.2 (0-0.7) k/uL Basophils # 0.1 (0-0.2) k/uL Poikilocytosis Slight PT 11.3 (10.0-12.5) sec INR 1.0 (<1.2) APTT 26.0 (22.0-30.0) sec Sodium 139 (137-145) mmol/L Potassium 4.0 (3.5-5.1) mmol/L Chloride 107 (98-107) mmol/L Carbon Dioxide 24 (22-30) mmol/L Anion Gap 8 mmol/L BUN 20 (9-20) mg/dL Creatinine 0.92 (0.66-1.25) mg/dL Est GFR (CKD-EPI)AfAm >90 (>60 ml/min/1.73 sqM) Est GFR (CKD-EPI)NonAf 83 (>60 ml/min/1.73 sqM) Glucose 262 H (74-99) mg/dL Calcium 9.4 (8.4-10.2) mg/dL Magnesium 1.9 (1.6-2.3) mg/dL Total Bilirubin 0.7 (0.2-1.3) mg/dL AST 25 (17-59) U/L ALT 28 (4-49) U/L Alkaline Phosphatase 88 (38-126) U/L Troponin I (0.000-0.034) ng/mL Total Protein 7.3 (6.3-8.2) g/dL Albumin 4.5 (3.5-5.0) g/dL 05/05/24 Range/Units 21:38 WBC (3.8-10.6) k/uL RBC (4.30-5.90) m/uL Hgb (13.0-17.5) gm/dL Hct (39.0-53.0) % MCV (80.0-100.0) fL MCH (25.0-35.0) pg MCHC (31.0-37.0) g/dL RDW (11.5-15.5) % Plt Count (150-450) k/uL MPV Neutrophils % % Lymphocytes % % Monocytes % % Eosinophils % % Basophils % % Neutrophils # (1.3-7.7) k/uL Lymphocytes # (1.0-4.8) k/uL Monocytes # (0-1.0) k/uL Eosinophils # (0-0.7) k/uL Basophils # (0-0.2) k/uL Poikilocytosis PT (10.0-12.5) sec INR (<1.2) APTT (22.0-30.0) sec Sodium (137-145) mmol/L Potassium (3.5-5.1) mmol/L Chloride (98-107) mmol/L Carbon Dioxide (22-30) mmol/L Anion Gap mmol/L BUN (9-20) mg/dL Creatinine (0.66-1.25) mg/dL Est GFR (CKD-EPI)AfAm (>60 ml/min/1.73 sqM) Est GFR (CKD-EPI)NonAf (>60 ml/min/1.73 sqM) Glucose (74-99) mg/dL Calcium (8.4-10.2) mg/dL Magnesium (1.6-2.3) mg/dL Total Bilirubin (0.2-1.3) mg/dL AST (17-59) U/L ALT (4-49) U/L Alkaline Phosphatase (38-126) U/L Troponin I <0.012 (0.000-0.034) ng/mL Total Protein (6.3-8.2) g/dL Albumin (3.5-5.0) g/dL Disposition Clinical Impression: Chest pain Disposition: ADMITTED IP TO THIS HOSP Condition: Fair Referrals: Shawn Telles DO [Primary Care Provider] - 1-2 days Decision Time: 22:37
[2024-05-05] MEDS: ASPIRIN 81 MG PO STA (22:52)
[2024-05-06 09:10] LABS: Chol/HDL Ratio 4.64 Ratio; LDL Cholesterol,Calculated 63.1 mg/dL (0.0-131.0)
[2024-05-06] MEDS ORDERED: ALPRAZolam 0.5 MG TAB PO PRN (09:24)
[2024-05-06] MEDS ORDERED: NITROGLYCERIN SL TABS 0.4 MG TAB SUBLINGUAL PRN ×2 (09:24→13:23)
[2024-05-06] MEDS ORDERED: ALPRAZolam 0.25 MG TAB PO PRN (09:24)
[2024-05-06] MEDS ORDERED: HEPARIN SODIUM 1,000 UN/ML (10ML VL) IV PRN (09:25)
[2024-05-06] MEDS ORDERED: lisinopriL 10 MG TAB PO SCH (09:30)
[2024-05-06] MEDS ORDERED: amLODIPine 5 MG TAB PO SCH (09:30)
[2024-05-06] MEDS ORDERED: DEXTROSE 50% SYRINGE 50 ML IVP PRN ×2 (09:33)
[2024-05-06] MEDS: ASPIRIN 81 MG PO SCH (09:49)
[2024-05-06 09:51] LABS: Basophils # (A) 0.1 k/uL (0-0.2); Basophils % (A) 1 %; Eosinophils # (A) 0.2 k/uL (0-0.7); Eosinophils % (A) 3 %; HCT 49.3 % (39.0-53.0); HGB 16.4 gm/dL (13.0-17.5); Lymphocytes # (A) 1.3 k/uL (1.0-4.8); Lymphocytes % (A) 21 %; MCHC 33.3 g/dL (31.0-37.0); MCV 87.2 fL (80.0-100.0); Monocytes # (A) 0.5 k/uL (0-1.0); Monocytes % (A) 8 %; Neutrophils # (A) 4.3 k/uL (1.3-7.7); Neutrophils % (A) 66 %; Platelet Count 194 k/uL (150-450); RBC 5.65 m/uL (4.30-5.90); RDW 14.9 % (11.5-15.5); WBC 6.5 k/uL (3.8-10.6)
[2024-05-06 10:00] LABS: INR 1.1 (<1.2); Partial Thromboplastin Time 25.7 sec (22.0-30.0); Prothrombin Time 11.8 sec (10.0-12.5)
[2024-05-06] MEDS: ASPIRIN 325 MG TAB PO STA (10:15)
[2024-05-06] MEDS: HEPARIN SODIUM 1,000 UN/ML (10ML VL) IV ONE (10:15)
[2024-05-06] MEDS: ATORVASTATIN 80 MG TAB PO STA (10:15)
[2024-05-06] MEDS: amLODIPine 10 MG TAB PO SCH (10:15)
[2024-05-06] MEDS: HEPARIN SOD,PORK IN 0.45% NACL 25,000 UNIT in 0.45% NACL 1 250ML.BAG IV SCH (10:18)
[2024-05-06] MEDS: DAPAGLIFLOZIN PROPANEDIOL 10 MG TABLET PO SCH (10:28)
[2024-05-06] MEDS: metFORMIN 500 MG TAB PO SCH (10:28)
--- NOTE | 2024-05-06 10:35 | P.PN ---
Progress Note - Text I was paged at approximately 3 AM in the morning to a #[phone] I tried calling but there was a voicemail instead I was repaged again sometime later to the same number, [phone] I tried calling several units to see who was trying to get in touch with me and I specifically called [address]. to see if they will paging me about the previous days procedure patient Thereafter I called the boarding machine operator and asked her to connect me to this number And I spoke to the nurse and informed her that I had been trying to call and respond to her page but she was paging me on the number that could not be dialed from outside She stated that she did not know anything about that and she was trying her best She informed me that she had a critical abnormal troponin I accepted the information from her
[2024-05-06] MEDS: ISOSORBIDE MONONITRATE ER 30 MG TAB.ER.24H PO SCH (10:37)
[2024-05-06] MEDS: atenoloL 50 MG TAB PO SCH (10:37)
[2024-05-06] MEDS: SODIUM CHLORIDE 0.9% 1,000 ML in EMPTY BAG 1 BAG IV SCH ×2 (10:38→14:48)
[2024-05-06] MEDS ORDERED: VERAPAMIL 2.5 MG/ML 2 ML AMP ONE (11:44)
[2024-05-06] MEDS ORDERED: LIDOCAINE 1% INJ 10MG/ML (20 ML MDV) ONE (11:44)
[2024-05-06] MEDS ORDERED: HEPARIN SODIUM 1,000 UN/ML (10ML VL) ONE (11:44)
[2024-05-06] MEDS ORDERED: fentaNYL (PF) 50 MCG/ML 2 ML AMP ONE (11:54)
[2024-05-06] MEDS: fentaNYL (PF) 50 MCG/1 ML VIAL IVP ONE (12:25)
[2024-05-06] MEDS: LIDOCAINE 1% INJ 10MG/ML (20 ML MDV) SQ ONE (12:25)
[2024-05-06] MEDS: IV FLUID CONTINUATION 1,000 ML IV ONE (12:26)
--- NOTE | 2024-05-06 12:31 | P.CRDCN ---
History of Present Illness History of present illness: HISTORY OF PRESENT ILLNESS: This is a 73-year-old male with a past medical history significant for coronary artery disease with previous stenting, hypertension, hyperlipidemia, diabetes, and former nicotine dependence. Patient follows in the office with Dr. Albrecht. We have been asked to see the patient in consultation for chest pain and elevated troponin. Patient examined at the bedside. Patient states that he checked his blood pressure at home and it was found to be 204/104. Patient does report he has been having some tightness in the middle of his chest. He states his symptoms are similar to when he required stenting in the past. He currently denies any shortness of breath. Patient's blood pressures have been elevated during hospitalization with a systolic blood pressure ranging between [id number]. Patient states he has been compliant with all of his medications on an o utpatient basis and has not missed any doses. Patient reports he is a former cigarette smoker. He does report occasional alcohol use and states that he enjoys Baileys in his coffee. DIAGNOSTICS: - EKG reveals sinus mechanism with no signs of acute ischemia. - Chest xray negative for acute process. - Laboratory data: WBC 6.5. Hemoglobin 16.4. Platelet count 194. Sodium 139. Potassium 4.0. BUN 20. Creatinine 0.92. Troponin 0.012. 0.012. 0.092. - Current home cardiac medications include Lipitor 20 mg at night, amlodipine 5 mg daily, atenolol 50 mg daily, lisinopril 10 mg twice a day. - Most recent echocardiogram obtained in February 2022 revealing normal EF, mild MR, mild TR, moderate LVH - Cardiac catheterization history: November 2016 with stenting to the mid LAD. Patient has previously undergone stenting to the mid and proximal circumflex REVIEW OF SYSTEMS: At the time of my exam: CONSTITUTIONAL: Denies fever or chills. HEENT: Denies blurred vision, vision changes, or eye pain. Denies hemoptysis CARDIOVASCULAR: Denies chest pain. Denies orthopnea. Denies PND. Denies palpi tations RESPIRATORY: Denies shortness of breath. GASTROINTESTINAL: Denies abdominal pain. Denies nausea or vomiting. HEMATOLOGIC: Denies bleeding disorders. GENITOURINARY: Denies any blood in urine. SKIN: Denies pruitis. Denies rash. PHYSICAL EXAM: VITAL SIGNS: Reviewed. GENERAL: Well-developed in no acute distress. HEENT: Head is normocephalic. Pupils are equal, round. Sclerae anicteric. Mucous membranes of the mouth are moist. Neck supple. No JVD or thyromegaly LUNGS: Respirations even and unlabored. Lungs essentially clear to auscultation bilaterally. HEART: Regular rate and rhythm. S1 and S2 heard. Systolic murmur noted ABDOMEN: Soft. Nondistended. Nontender. EXTREMITIES: Normal range of motion. No clubbing or cyanosis. Peripheral pulses intact. No lower extremity edema NEUROLOGIC: Awake and alert. Oriented x 3. ASSESSMENT: Hypertensive urgency, improving Non-STEMI Coronary artery disease with previous stenting of the LAD and circumflex Hyperlipidemia Diabetes Former nicotine dependence Occasional alcohol use PLAN: Obtain 2D echo to assess cardiac structure and function Begin IV heparin Resume home cardiac medications Add Imdur 30 mg daily Increase lisinopril and amlodipine for optimal blood pressure control Patient's troponin elevation may be secondary to uncontrolled hypertension. However due to patient's symptoms along with his cardiac history, cardiac c atheterization was recommended. Patient is agreeable. Patient to undergo cardiac catheterization today with Dr. Albrecht Further recommendations pending patient course Nurse practitioner note has been reviewed by physician. Signing provider agrees with the documented findings, assessment, and plan of care documented by TREADLE CUT OFF SAW OPERATOR as a scribe. Past Medical History Past Medical History: Cancer, Chest Pain / Angina, Diabetes Mellitus, GERD/Reflux, Hyperlipidemia, Hypertension, Myocardial Infarction ([place]) Additional Past Medical History / Comment(s): elevated liver enzymes,bladder CA, [place] x4 Last Myocardial Infarction Date:: , History of Any Multi-Drug Resistant Organisms: None Reported Past Surgical History: Bladder Surgery, Heart Catheterization With Stent, Orthopedic Surgery Additional Past Surgical History / Comment(s): left hand surgery,heart stents x3,bladder CA removed, PANCREASE. SURGERY Past Anesthesia/Blood Transfusion Reactions: No Reported Reaction Date of Last Stent Placement:: 2016 Past Psychological History: No Psychological Hx Reported Smoking Status: Former smoker Past Alcohol Use History: None Reported Past Drug Use History: None Reported - Past Family History Father Family Medical History: Cancer, Coronary Artery Disease (CAD) Additional Family Medical History / Comment(s): lung Sister(s) Family Medical History: Cancer Additional Family Medical History / Comment(s): BREAST CANCER Medications and Allergies Home Medications Medication Instructions Recorded Confirmed Type glipiZIDE [Glucotrol] 5 mg PO BID-W/MEALS 11/03/16 05/06/24 History atenoloL [Tenormin] 50 mg PO DAILY 11/05/16 05/06/24 History metFORMIN HCL [Glucophage] 1,000 mg PO W/BRKFST 10/06/18 05/06/24 History metFORMIN HCL [Glucophage] 500 mg PO W/SUPPER 10/06/18 05/06/24 History Albuterol Sulfate [Albuterol 1 - 2 puff PO RT-Q4H PRN 05/06/24 05/06/24 History Sulfate Hfa] Atorvastatin [Lipitor] 20 mg PO HS 05/06/24 05/06/24 History Empagliflozin [Jardiance] 25 mg PO DAILY 05/06/24 05/06/24 History amLODIPine [Norvasc] 5 mg PO DAILY 05/06/24 05/06/24 History lisinopriL [Zestril] 10 mg PO BID 05/06/24 05/06/24 History Allergies Allergy/AdvReac Type Severity Reaction Status Date / Time Sulfa (Sulfonamide Allergy head and Verified 05/06/24 08:28 Antibiotics) neck pain sulfamethoxazole Allergy head and Verified 05/06/24 08:28 [From Bactrim] neck pain trimethoprim [From Bactrim] Allergy head and Verified 05/06/24 08:28 neck pain Physical Exam Vitals: Vital Signs Temp Pulse Pulse Resp BP BP Pulse Ox 05/06/24 05:45 97.7 F 82 14 166/87 96 05/06/24 01:47 98.0 F 85 18 131/74 95 05/05/24 22:25 93 16 167/91 98 05/05/24 21:22 98 F 104 H 22 190/89 97 Intake and Output 05/05/24 05/06/24 05/06/24 22:59 06:59 14:59 Other: # Voids 2 Weight 99.337 kg Results 05/06/24 09:33 05/05/24 21:38 Cardiac Enzymes 05/05/24 05/05/24 05/05/24 Range/Units 21:38 21:38 23:16 AST 25 (17-59) U/L Troponin I <0.012 <0.012 (0.000-0.034) ng/mL 05/06/24 Range/Units 02:08 AST (17-59) U/L Troponin I 0.092 H* (0.000-0.034) ng/mL Coagulation 05/05/24 Range/Units 21:38 PT 11.3 (10.0-12.5) sec APTT 26.0 (22.0-30.0) sec Lipids 05/06/24 Range/Units 02:08 Triglycerides 167.00 H (0.00-149.00) mg/dL Cholesterol 123.00 (0.00-200.00) mg/dL HDL Cholesterol 26.50 L (40.00-60.00) mg/dL Cholesterol/HDL Ratio 4.64 Ratio CBC 05/05/24 Range/Units 21:38 WBC 5.5 (3.8-10.6) k/uL RBC 5.44 (4.30-5.90) m/uL Hgb 16.0 (13.0-17.5) gm/dL Hct 47.3 (39.0-53.0) % Plt Count 177 (150-450) k/uL Comprehensive Metabolic Panel 05/05/24 Range/Units 21:38 Sodium 139 (137-145) mmol/L Potassium 4.0 (3.5-5.1) mmol/L Chloride 107 (98-107) mmol/L Carbon Dioxide 24 (22-30) mmol/L BUN 20 (9-20) mg/dL Creatinine 0.92 (0.66-1.25) mg/dL Glucose 262 H (74-99) mg/dL Calcium 9.4 (8.4-10.2) mg/dL AST 25 (17-59) U/L ALT 28 (4-49) U/L Alkaline Phosphatase 88 (38-126) U/L Total Protein 7.3 (6.3-8.2) g/dL Albumin 4.5 (3.5-5.0) g/dL Current Medications Generic Name Dose Route Start Last Admin Trade Name Freq PRN Reason Stop Dose Admin Aspirin 325 mg 05/06/24 09:00 Aspirin 325 Mg Tab PO DAILY DARWIN Nitroglycerin 0.4 mg 05/05/24 22:30 Nitroglycerin Sl Tabs 0.4 Mg Tab SUBLINGUAL Q5M PRN Chest Pain Intake and Output 05/05/24 05/06/24 05/06/24 22:59 06:59 14:59 Other: # Voids 2 Weight 99.337 kg 05/05/24 21:38 05/05/24 21:38
[2024-05-06] MEDS ORDERED: CLOPIDOGREL 75 MG TAB ONE (12:34)
[2024-05-06] MEDS: HEPARIN SODIUM 1,000 UN/ML (10ML VL) IVP ONE (12:36)
[2024-05-06] MEDS: CLOPIDOGREL 75 MG TAB PO ONE (12:37)
[2024-05-06] MEDS: IOPAMIDOL-370 100ML BTL INJ ONE ×2 (13:07→13:12)
[2024-05-06] MEDS ORDERED: ATROPINE SULFATE 0.1 MG/ML 10ML SYRINGE IV PRN (13:23)
[2024-05-06] MEDS ORDERED: ZOLPIDEM 5 MG TAB PO PRN (13:23)
[2024-05-06] MEDS ORDERED: RX INFO: IV CONTRAST WAS GIVEN 1 EACH MISC MISCELLANE PRN (13:23)
[2024-05-06] MEDS ORDERED: MAG HYDROX/AL HYDROX/SIMETH 30 ML CUP PO PRN (13:23)
--- NOTE | 2024-05-06 13:43 | P.CARDCATH ---
Date of Procedure: 05/06/24 Description of Procedure: Cardiac Catheterization: The patient is a 73-year-old male with a known history of CAD, post multivessel stenting who presented with symptoms of not feeling well, hypertension and troponin elevation. Recommendations were made regarding cardiac catheterization, the risks and the complications were discussed with the patient who is in full understanding and agreement. Procedure Description: Patient was brought to tutorial laboratory supervisor in fasting semi-sedated state after receiving Fentanyl and Benadryl achieiving moderate conscious sedated state. Using Xylocaine Anesthesia and modified Seldinger technique, a 6[place] sheath was introduced in the left femoral artery using micropuncture technique. Subsequently, selective coronary angiography was performed using a 6[place] 4 bend Cong catheter. Multiple views of the coronary artery including hemiaxial views were obtained. The 6 [place] pigtail catheter was used to cross the aortic valve and LVEDP was calculated. PCI: After removing the catheter a 6 [place] CLS 3.5 guiding catheter was introduced into the system and after cannulating the left main a 0.014 BMW J-wire was positioned in the distal left circumflex. Subsequently a iogyn [place] eye IVUS catheter was introduced and imaging was obtained and revealed new intimal hy perplasia in the distal segment of the stent as well is a soft plaque distal to it with a lumen distally of 4.0-4.5 mm. After removing the catheter a 4.0 x 18 mm Xience freddy point stent was deployed at 16 cira, repeat IVUS imaging was obtained and after removing the catheter a 5.0 x 20 mm NC trek balloon was advanced and 1 inflation in the proximal stents were done at 10 cira. After removing the wire images were obtained and revealed stable successful stenting. Following that, catheter and sheath were removed. Hemostasis was obtained with deployment of Angio-Seal. There was no immediate complication. Patient was returned to room in stable condition. Of note, the patient received a total of 8500 units of intravenous heparin as well as intra-arterial verapamil. He received an oral loading dose of clopidogrel. His ACT was monitored. He had chest discomfort that resolved at the end of the procedure. Findings: Left main: This is a large size vessel, bifurcating into LAD and left circum flex, left main has 10 to 20% plaque proximally LAD: This is a large size vessel, reaching to the apex giving rise to 3 small diagonal branch. The LAD is calcified proximally. The stented segment is patent. There is 20% plaque proximally with no high-grade stenosis Left circumflex: This is a large nondominant vessel, bifurcating to a large obtuse marginal branch. The proximal segment of the left circumflex has an 80% plaque the rest of the vessel has no high-grade stenosis RCA: This is a large dominant vessel, chronically occluded proximally with evidence of ipsilateral and contralateral collaterals filling the PDA and PLV with no changes since 2007 Left Ventriculogram: Not performed Hemodynamics: There was no gradient across the aortic valve, LVEDP was 16-20 mmHg Conclusion: 1. Severe stenosis in the proximal left circumflex 2. Patent stent in the proximal LAD 3. Chronically occluded proximal RCA 4. Successful stenting of the proximal left circumflex with reduction of stenos is from 80% to 0% with IVUS imaging and TORY-3 flow Recommendations: The patient will continue on aspirin and clopidogrel for 1 year without any interruption in addition to aggressive coronary risks modification, attempting to maintain LDL below 60 mg/dL. The findings and the recommendations were discussed with the patient and he was in full understanding and agreement. Duration of sedation is 50 minutes.
[2024-05-06] MEDS: INSULIN ASPART (NovoLOG) 100 UNIT/ML VIAL SQ SCH (14:48)
--- NOTE | 2024-05-06 15:59 | P.HPIM ---
History of Present Illness H&P Date: 05/06/24 Chief Complaint: Chest discomfort This is a pleasant 73-year-old patient, follows Dr. Telles. Chronic stable medical condition include diabetes, GERD, hypertension, hyperlipidemia, prior MIs with stent. Last stent proximally about 4 years ago. Patient had gone about his usual work as yesterday. [place] very tired the whole day. Came back from work. Feeling tired rundown. Took his blood pressure at home found to be systolic greater than 201. Also having some chest discomfort. Decided to come in. Patient third set of troponin went up to 0.092. Placed on IV heparin. Cardiology was consulted. Review of systems: GEN.: Tired EYES: None HEENT: None NECK: None RESPIRATORY: None CARDIOVASCULAR: As above e GASTROINTESTINAL: None GENITOURINARY: None MUSCULOSKELETAL: [Pain in several joints LYMPHATICS: None HEMATOLOGICAL: None PSYCHIATRY: None NEUROLOGICAL: None Social history: Lives alone. 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 Smoked for approximately 4 to 4 years stopped in 2007 did about average 2 packs a day. Physical examination: VITAL SIGNS: 97.7, 82, 14, 166/87 GENERAL: BMI 30.5, reclining bed awake a bit tired. EYES: Pupils equal. Conjunctiva divine l. HEENT: External appearance of nose and ears normal, oral cavity grossly normal. NECK: JVD not raised; masses not palpable. HEART: First and second heart sounds are normal; no edema. LUNGS: Respiratory rate normal; clear to auscultation. ABDOMEN: Soft, nontender, liver spleen not palpable, no masses palpable. PSYCH: Alert and oriented x3; mood and affect divine l. MUSCULOSKELETAL:No Clubbing/cyanosis;muscles-grossly intact NEUROLOGICAL: Cranial nerves grossly intact; no facial asymmetry, power and sensation grossly intact. LYMPHATICS: No lymph nodes palpable in the axilla and neck INVESTIGATIONS, reviewed in the clinical context: May 06, 2024: White count 6.5 hemoglobin 16.4 platelets 194 Troponin I less than 0.012, is less than 0.012, 0.092 EKG tracing personally reviewed by me-normal sinus rhythm. ST segment depressed in inferolateral leads Chest x-ray film personally reviewed by me-some prominence of pulmonary artery LDL 63.1 triglycerides 167 Assessment and plan: -Acute non-Q wave ND IV heparin. Aspirin. For cardiac catheterization today -CAD with prior history of stents Patient does follow with Dr. Albrecht -Diabetes mellitus type 2, on oral hypoglycemic Glucophage. Hold Glucotrol. Accu-Cheks with sliding scale -GERD Pepcid as needed -Hyperlipidemia Lipitor 20 mg nightly -Essential hypertension Amlodipine 5 mg Tenormin 50 mg Zestril 10 mg twice daily -COPD in a prior smoker Albuterol 1 to 2 puffs every 4 as needed -Full code Past Medical History Past Medical History: Cancer, Chest Pain / Angina, Diabetes Mellitus, GERD/Reflux, Hyperlipidemia, Hypertension, Myocardial Infarction (ND) Additional Past Medical History / Comment(s): elevated liver enzymes,bladder CA, ND x4 Last Myocardial Infarction Date:: , History of Any Multi-Drug Resistant Organisms: None Reported Past Surgical History: Bladder Surgery, Heart Catheterization With Stent, Orthopedic Surgery Additional Past Surgical History / Comment(s): left hand surgery,heart stents x3,bladder CA removed, PANCREASE. SURGERY Past Anesthesia/Blood Transfusion Reactions: No Reported Reaction Date of Last Stent Placement:: 2016 Past Psychological History: No Psychological Hx Reported Smoking Status: Former smoker Past Alcohol Use History: None Reported Additional Past Alcohol Use History / Comment(s): ,started smoking at age 15 QUIT SMOKING IN 2007 SMOKED 2PPD Past Drug Use History: None Reported Additional Drug Use History / Comment(s): STOPPED TAKING DRUGS IN 1989"S - Past Family History Father Family Medical History: Cancer, Coronary Artery Disease (CAD) Additional Family Medical History / Comment(s): lung Sister(s) Family Medical History: Cancer Additional Family Medical History / Comment(s): BREAST CANCER Medications and Allergies Home Medications Medication Instructions Recorded Confirmed Type glipiZIDE [Glucotrol] 5 mg PO BID-W/MEALS 11/03/16 05/06/24 History atenoloL [Tenormin] 50 mg PO DAILY 11/05/16 05/06/24 History metFORMIN HCL [Glucophage] 1,000 mg PO W/BRKFST 10/06/18 05/06/24 History metFORMIN HCL [Glucophage] 500 mg PO W/SUPPER 10/06/18 05/06/24 History Albuterol Sulfate [Albuterol 1 - 2 puff PO RT-Q4H PRN 05/06/24 05/06/24 History Sulfate Hfa] Atorvastatin [Lipitor] 20 mg PO HS 05/06/24 05/06/24 History Empagliflozin [Jardiance] 25 mg PO DAILY 05/06/24 05/06/24 History amLODIPine [Norvasc] 5 mg PO DAILY 05/06/24 05/06/24 History lisinopriL [Zestril] 10 mg PO BID 05/06/24 05/06/24 History Allergies Allergy/AdvReac Type Severity Reaction Status Date / Time Sulfa (Sulfonamide Allergy head and Verified 05/06/24 08:28 Antibiotics) neck pain sulfamethoxazole Allergy head and Verified 05/06/24 08:28 [From Bactrim] neck pain trimethoprim [From Bactrim] Allergy head and Verified 05/06/24 08:28 neck pain Physical Exam Vitals: Vital Signs Temp Pulse Pulse Pulse Resp BP BP 05/06/24 14:38 72 15 124/73 05/06/24 14:00 76 15 130/65 05/06/24 13:45 78 15 130/71 05/06/24 13:30 82 14 126/66 05/06/24 08:00 82 05/06/24 05:45 97.7 F 82 14 166/87 05/06/24 01:47 98.0 F 85 18 131/74 05/05/24 22:25 93 16 167/91 05/05/24 21:22 98 F 104 H 22 190/89 Pulse Ox 05/06/24 14:38 95 05/06/24 14:00 96 05/06/24 13:45 93 L 05/06/24 13:30 96 05/06/24 08:00 05/06/24 05:45 96 05/06/24 01:47 95 05/05/24 22:25 98 05/05/24 21:22 97 Intake and Output 05/06/24 05/06/24 05/06/24 06:59 14:59 22:59 Intake Total 65.05 Balance 65.05 Intake: IV 50 Intake, IV Titration 15.05 Amount Heparin Sod,Pork in 0.45% 15.05 NaCl 25,000 unit In 0.45 % NaCl 1 250ml.bag @ 10.1 UNITS/KG/HR 10.033 mls/ hr IV .Q24H [facility] Rx#: [id number] Other: Voiding Method Toilet # Voids 2 Weight 99.337 kg Results CBC & Chem 7: 05/06/24 09:33 05/05/24 21:38 Labs: Abnormal Lab Results - Last 24 Hours (Table) 05/05/24 05/06/24 05/06/24 Range/Units 21:38 02:08 02:08 Glucose 262 H (74-99) mg/dL Troponin I 0.092 H* (0.000-0.034) ng/mL Triglycerides 167.00 H (0.00-149.00) mg/dL HDL Cholesterol 26.50 L (40.00-60.00) mg/dL Thrombosis Risk Factor Assmnt - Choose All That Apply Any of the Below Risk Factors Present?: Yes Each Factor Represents 1 point: Obesity (BMI >25) Other Risk Factors: Yes Each Risk Factor Represents 2 Points: Age 61-74 years Other congenital or acquired thrombophilia - If yes, enter type in comment: No Thrombosis Risk Factor Assessment Total Risk Factor Score: 3 Thrombosis Risk Factor Assessment Level: Moderate Risk
[2024-05-06 16:17] LABS: Glucose,Whole Blood 146 mg/dL (70-110)
[2024-05-06] MEDS ORDERED: metFORMIN 500 MG TAB PO SCH (17:30)
[2024-05-06] MEDS: ATORVASTATIN 40 MG TAB PO SCH (20:20)
[2024-05-06] MEDS: lisinopriL 20 MG TAB PO SCH (20:21)
[2024-05-06 20:22] LABS: Glucose,Whole Blood 203 mg/dL (70-110)
[2024-05-06] MEDS ORDERED: ATORVASTATIN 20 MG TAB PO SCH (21:00)
[2024-05-07 05:44] LABS: Glucose,Whole Blood 121 mg/dL (70-110)
[2024-05-07] MEDS ORDERED: HEPARIN SODIUM,PORCINE 10,000 UNIT in SODIUM CHLORIDE 0.9% 1,000 ML IRRIGATION PRN (07:00)
[2024-05-07] MEDS ORDERED: HEPARIN SODIUM,PORCINE (1 ML) 2,500 UNIT in SODIUM CHLORIDE 0.9% 250 ML IRRIGATION PRN (07:00)
[2024-05-07] MEDS: ASPIRIN 325 MG TAB PO SCH (07:32)
[2024-05-07] MEDS: CLOPIDOGREL 75 MG TAB PO SCH (09:28)
[2024-05-07] MEDS: ASPIRIN 81 MG PO SCH (09:28)
[2024-05-07 10:12] VITALS: TEMP 98
[2024-05-07 11:32] LABS: African American GFR (CKD) >90 (>60 ml/min/1.73 sqM); Anion Gap 8 mmol/L; Blood Urea Nitrogen 16 mg/dL (9-20); Calcium 9.2 mg/dL (8.4-10.2); Carbon Dioxide 25 mmol/L (22-30); Chloride 104 mmol/L (98-107); Glucose 182 mg/dL (74-99); Non-African American GFR(CKD) 88 (>60 ml/min/1.73 sqM); Potassium 4.9 mmol/L (3.5-5.1); Sodium 137 mmol/L (137-145)
[2024-05-07 11:37] LABS: Glucose,Whole Blood 264 mg/dL (70-110)
[2024-05-07 11:42] VITALS: BMI 30.2
[2024-05-07 14:07] VITALS: BP 118/64; PULSE 72; RESP 17
--- NOTE | 2024-05-07 15:36 | P.PN ---
Subjective Progress Note Date: 05/07/24 05/07/2024 Patient is doing well from cardiovascular standpoint. He had a right femoral access cardiac catheterization done by Dr. Albrecht yesterday. No groin site complication. Hemodynamic stable. Chest pain-free. S/p PCI to LCx. 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 Patent stent in LAD. Is being discharged on aspirin, Lipitor 40 mg, Plavix 75, Imdur 30, amlodipine 10, lisinopril 20 mg twice daily. Jardiance 25 mg daily HISTORY OF PRESENT ILLNESS: This is a 73-year-old male with a past medical history significant for coronary artery disease with previous stenting, hypertension, hyperlipidemia, diabetes, a nd former nicotine dependence. Patient follows in the office with Dr. Albrecht. We have been asked to see the patient in consultation for chest pain and elevated troponin. Patient examined at the bedside. Patient states that he checked his blood pressure at home and it was found to be 204/104. Patient does report he has been having some tightness in the middle of his chest. He states his symptoms are similar to when he required stenting in the past. He currently denies any shortness of breath. Patient's blood pressures have been elevated during hospitalization with a systolic blood pressure ranging between 139232. Patient states he has been compliant with all of his medications on an ou tpatient basis and has not missed any doses. Patient reports he is a former cigarette smoker. He does report occasional alcohol use and states that he enjoys Baileys in his coffee. DIAGNOSTICS: - EKG reveals sinus mechanism with no signs of acute ischemia. - Chest xray negative for acute process. - Laboratory data: WBC 6.5. Hemoglobin 16.4. Platelet count 194. Sodium 139. Potassium 4.0. BUN 20. Creatinine 0.92. Troponin 0.012. 0.012. 0.092. - Current home cardiac medications include Lipitor 20 mg at night, amlodipine 5 mg daily, atenolol 50 mg daily, lisinopril 10 mg twice a day. - Most recent echocardiogram obtained in February 2022 revealing normal EF, mild MR, mild TR, moderate LVH - Cardiac catheterization history: November 2016 with stenting to the mid LAD. Patient has previously undergone stenting to the mid and proximal circumflex PHYSICAL EXAM: VITAL SIGNS: Reviewed. GENERAL: Well-developed in no acute distress. HEENT: Head is normocephalic. Pupils are equal, round. Sclerae anicteric. Mucous membranes of the mouth are moist. Neck supple. No JVD or thyromegaly LUNGS: Respirations even and unlabored. Lungs essentially clear to auscultation bilaterally. HEART: Regular rate and rhythm. S1 and S2 heard. Systolic murmur noted ABDOMEN: Soft. Nondistended. Nontender. EXTREMITIES: Normal range of motion. No clubbing or cyanosis. Peripheral pulses intact. No lower extremity edema NEUROLOGIC: Awake and alert. Oriented x 3. ASSESSMENT: Hypertensive urgency, improving Non-STEMI Coronary artery disease with previous stenting of the LAD and circumflex Hyperlipidemia Diabetes Former nicotine dependence Occasional alcohol use PLAN: His echocardiogram was reviewed which showed preserved LV systolic function, moderate LVH. Discharged on aspirin, Plavix, Lipitor 40 mg. Increased his amlodipine to 10 mg, lisinopril to 20 mg twice daily. This was done because patient was hypotensive on admission. Neck step would be to add Imdur and consider Ranexa if patient continues to have anginal symptoms on outpatient basis. Continue Jardiance. Okay to be discharged from cardiovascular standpoint with outpatient follow-up with Dr. Albrecht Objective - Vital Signs Vital signs: Vital Signs Temp 98 F 05/07/24 09:30 Pulse 72 05/07/24 11:30 Resp 17 05/07/24 11:30 BP 118/64 05/07/24 11:30 Pulse Ox 95 05/07/24 11:30 FiO2 Intake & Output 05/06/24 05/07/24 05/07/24 18:59 06:59 18:59 Intake Total 65.05 720 358 Output Total 600 400 Balance -534.95 320 358 Weight 99.337 kg 98.5 kg 98.5 kg Intake: IV 50 Intake, IV Titration 15.05 Amount Heparin Sod,Pork in 0.45% 15.05 NaCl 25,000 unit In 0.45 % NaCl 1 250ml.bag @ 10.1 UNITS/KG/HR 10.033 mls/ hr IV .Q24H [facility] Rx#: [id number] Oral 720 358 Output: Urine 600 400 Other: Voiding Method Toilet Toilet Toilet # Voids 1 - Labs CBC & Chem 7: 05/06/24 09:33 05/07/24 09:53 Labs: Abnormal Lab Results - Last 24 Hours (Table) 05/06/24 05/06/24 05/07/24 Range/Units 16:15 20:20 05:42 Glucose (74-99) mg/dL POC Glucose (mg/dL) 146 H 203 H 121 H (70-110) mg/dL 05/07/24 05/07/24 Range/Units 09:53 11:35 Glucose 182 H (74-99) mg/dL POC Glucose (mg/dL) 264 H (70-110) mg/dL
--- NOTE | 2024-05-07 16:09 | CA ---
Transthoracic Echo Report Name: Everardo Randhawa Age: 73 Gender: M : 1950 Exam Date: 05/07/2024 11:06 Exam Location: [place] [facility] Ht (in): 71 Wt (lb): 219 Ordering Physician: Mirela Carpenter Attending/Referring Phys: [id number], Jayden Greens Picker Jolynn Ng RDCS Procedure CPT: Indications: CP, LV function Cardiac Hx: 4 stents Technical Quality: Good Contrast 1: Total Dose (mL): Contrast 2: Total Dose (mL): MEASUREMENTS (Male / Female) Normal Values 2D ECHO LV Diastolic Diameter PLAX 5.5 cm 4.2 - 5.9 / 3.9 - 5.3 cm LV Systolic Diameter PLAX 3.6 cm IVS Diastolic Thickness 1.1 cm 0.6 - 1.0 / 0.6 - 0.9 cm LVPW Diastolic Thickness 1.1 cm 0.6 - 1.0 / 0.6 - 0.9 cm LV Relative Wall Thickness 0.4 LA Systolic Diameter LX 3.7 cm 3.0 - 4.0 / 2.7 - 3.8 cm LA Volume 43.5 cm??? 18 - 58 / 22 - 52 cm??? LA Volume Index 19.3 cm???/m??? 16 - 28 cm???/m??? M-MODE Aortic Root Diameter MM 3.2 cm LA Systolic Diameter MM 3.5 cm LA Ao Ratio MM 1.1 DOPPLER AV Peak Velocity 154.2 cm/s AV Peak Gradient 9.5 mmHg Mitral E Point Velocity 64.5 cm/s Mitral A Point Velocity 107.8 cm/s Mitral E to A Ratio 0.6 MV Deceleration Time 263.0 ms FINDINGS Left Ventricle Left ventricular ejection fraction is estimated at 55-60 %. Mildly increased septal wall thickness. Left ventricular cavity size normal. No obvious regional wall motion abnormalities. Right Ventricle Normal right ventricular size and function. Right Atrium Normal right atrial size. No right atrial thrombus or mass seen. Left Atrium Normal left atrial size. No left atrial thrombus or mass present. Mitral Valve Structurally normal mitral valve. No mitral stenosis, regurgitation or prolapse. Aortic Valve Trileaflet aortic valve. No aortic valve stenosis or regurgitation. Tricuspid Valve Structurally normal tricuspid valve. No tricuspid stenosis, regurgitation or prolapse. Pulmonic Valve Structurally normal pulmonic valve. No pulmonic regurgitation. Pericardium No pericardial or pleural effusion. Aorta Normal size aortic root and proximal ascending aorta. CONCLUSIONS LVH with preserved systolic function Previewed by: Dr. Gibran Chandra MD (Electronically Signed) Final Date: 07 May 2024 16:08
--- NOTE | 2024-05-07 19:34 | P.DS ---
Providers Date of admission: 05/07/24 14:01 Expected date of discharge: 05/07/24 Attending physician: Socrates Walker Consults: 05/05/24 22:30 Consult Physician Urgent Consulting Provider: Maria R Albrecht Consult Reason/Comments: chest pain Do you want consulting provider notified?: Yes 05/06/24 13:23 Consult Physician Routine Consulting Provider: [facility] Consult Reason/Comments: Post Interventional Patient Do you want consulting provider notified?: Already Contacted Primary care physician: Shawn [facility] Course: Chief Complaint: Chest discomfort This is a pleasant 73-year-old patient, follows Dr. Telles. Chronic stable medical condition include diabetes, GERD, hypertension, hyperlipidemia, prior MIs with stent. Last stent proximally about 4 years ago. Patient had gone about his usual work as yesterday. [place] very tired the whole day. Came back from work. Feeling tired rundown. Took his blood pressure at home found to be systolic greater than 201. Also having some chest discomfort. Decided to come in. Patient third set of troponin went up to 0.092. Placed on IV heparin. Cardiology was consulted. May 07: Patient yesterday underwent cardiac catheterization by Dr. Albrecht. Found to have a proximal stenosis left circumflex. Successful stenting carried out. Patient has a patent stent in proximal LAD and chronically occluded proximal RCA. Today patient doing well. Up and about. Discussed with Dr. Galicia. Cleared for discharge. 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 Social history: Lives alone. Does maintain his work/[employer]. Smoked for approximately 4 to 4 years stopped in 2007 did about average 2 packs a day. Physical examination: VITAL SIGNS: 98, 72, 17, 1 one 8 x 64, 95% room air GENERAL: Comfortable EYES: Pupils equal. Conjunctiva divine l. HEENT: External appearance of nose and ears normal, oral cavity grossly normal. NECK: JVD not raised; masses not palpable. HEART: First and second heart sounds are normal; no edema. LUNGS: Respiratory rate normal; clear to auscultation. ABDOMEN: Soft, nontender, liver spleen not palpable, no masses palpable. PSYCH: Alert and oriented x3; mood and affect divine l. MUSCULOSKELETAL:No Clubbing/cyanosis;muscles-grossly intact N INVESTIGATIONS, reviewed in the clinical context: May 07: Potassium 4.9 creatinine 0.82 May 06, 2024: White count 6.5 hemoglobin 16.4 platelets 194 Troponin I less than 0.012, is less than 0.012, 0.092 EKG tracing personally reviewed by me-normal sinus rhythm. ST segment depressed in inferolateral leads Chest x-ray film personally reviewed by me-some prominence of pulmonary artery LDL 63.1 triglycerides 167 Assessment and plan: -Acute non-Q wave MT IV heparin. Aspirin. For cardiac catheterization today -Cardiac catheterization: proximal stenosis left circumflex. Successful stenting carried out. Patient has a patent stent in proximal LAD and chronically occluded proximal RCA -CAD with prior history of stents Patient does follow with Dr. Albrecht -Diabetes mellitus type 2, on oral hypoglycemic Glucophage. Hold Glucotrol. Accu-Cheks with sliding scale -GERD Pepcid as needed -Hyperlipidemia Lipitor 40 mg nightly -Essential hypertension Amlodipine 10 mg Tenormin 50 mg Zestril 20 mg twice daily -COPD in a prior smoker Albuterol 1 to 2 puffs every 4 as needed -Full code Disposition: Home Past Medical History Past Medical History: Cancer, Chest Pain / Angina, Diabetes Mellitus, GERD/Reflux, Hyperlipidemia, Hypertension, Myocardial Infarction (MT) Additional Past Medical History / Comment(s): elevated liver enzymes,bladder CA, [place] x4 Last Myocardial Infarction Date:: , History of Any Multi-Drug Resistant Organisms: None Reported Past Surgical History: Bladder Surgery, Heart Catheterization With Stent, Orthopedic Surgery Additional Past Surgical History / Comment(s): left hand surgery,heart stents x3,bladder CA removed, PANCREASE. SURGERY Past Anesthesia/Blood Transfusion Reactions: No Reported Reaction Date of Last Stent Placement:: 2016 Past Psychological History: No Psychological Hx Reported Smoking Status: Former smoker Past Alcohol Use History: None Reported Additional Past Alcohol Use History / Comment(s): ,started smoking at age 15 QUIT SMOKING IN 2007 SMOKED 2PPD Past Drug Use History: None Reported Additional Drug Use History / Comment(s): STOPPED TAKING DRUGS IN Plan - Discharge Summary Discharge Rx Participant: No New Discharge Prescriptions: New Aspirin 81 mg PO DAILY tab Atorvastatin [Lipitor] 40 mg PO HS #30 tab Nitroglycerin Sl Tabs [Nitrostat] 0.4 mg SUBLINGUAL Q5M PRN #30 tab PRN Reason: Chest Pain Clopidogrel [Plavix] 75 mg PO DAILY #30 tab Isosorbide Mononitrate ER [Imdur] 30 mg PO DAILY #30 tab amLODIPine [Norvasc] 10 mg PO HS #30 tab lisinopriL [Zestril] 20 mg PO BID #60 tab Continue glipiZIDE [Glucotrol] 5 mg PO BID-W/MEALS atenoloL [Tenormin] 50 mg PO DAILY metFORMIN HCL [Glucophage] 1,000 mg PO W/BRKFST metFORMIN HCL [Glucophage] 500 mg PO W/SUPPER Empagliflozin [Jardiance] 25 mg PO DAILY Albuterol Sulfate [Albuterol Sulfate Hfa] 1 - 2 puff PO RT-Q4H PRN PRN Reason: Shortness Of Breath Discontinued lisinopriL [Zestril] 10 mg PO BID Atorvastatin [Lipitor] 20 mg PO HS amLODIPine [Norvasc] 5 mg PO DAILY Discharge Medication List glipiZIDE [Glucotrol] 5 mg PO BID-W/MEALS 11/03/16 [History] atenoloL [Tenormin] 50 mg PO DAILY 11/05/16 [History] metFORMIN HCL [Glucophage] 1,000 mg PO W/BRKFST 10/06/18 [History] metFORMIN HCL [Glucophage] 500 mg PO W/SUPPER 10/06/18 [History] Albuterol Sulfate [Albuterol Sulfate Hfa] 1 - 2 puff PO RT-Q4H PRN 05/06/24 [History] Empagliflozin [Jardiance] 25 mg PO DAILY 05/06/24 [History] Aspirin 81 mg PO DAILY tab 05/07/24 [Rx] Atorvastatin [Lipitor] 40 mg PO HS #30 tab 05/07/24 [Rx] Clopidogrel [Plavix] 75 mg PO DAILY #30 tab 05/07/24 [Rx] Isosorbide Mononitrate ER [Imdur] 30 mg PO DAILY #30 tab 05/07/24 [Rx] Nitroglycerin Sl Tabs [Nitrostat] 0.4 mg SUBLINGUAL Q5M PRN #30 tab 05/07/24 [Rx] amLODIPine [Norvasc] 10 mg PO HS #30 tab 05/07/24 [Rx] lisinopriL [Zestril] 20 mg PO BID #60 tab 05/07/24 [Rx] Follow up Appointment(s)/Referral(s): Maria R Albrecht MD [STAFF PHYSICIAN] - 1 Week (Office will call with appointment date/time.) Shawn Telles DO [Primary Care Provider] - 1-2 days Patient Instructions/Handouts: Heart Catheterization (DC) Discharge Disposition: HOME WITH HOME HEALTH SERVICES
== END 2024-05-07 14:54 | disposition home health service (06) | DRG 322 ==
LOC: EC 21:20 → 6NMEDSUR 22:30 → 3SCARD 05-06 05:05 → OBSVTOIN 05-07 14:01
PROVIDERS: ADMIT Hospitalist; ATTEND Hospitalist
PROC: B240ZZ3 Ultrasonography of Single Coronary Artery, Intravascular (ICD-10-PCS; 2024-05-06)
PROC: 027034Z Dilation of Coronary Artery, One Artery with Drug-eluting Intraluminal Device, Percutaneous Approach (ICD-10-PCS; principal; 2024-05-06 07:30)
PROC: 4A023N7 Measurement of Cardiac Sampling and Pressure, Left Heart, Percutaneous Approach (ICD-10-PCS; 2024-05-06 07:30)
PROC: B2111ZZ Fluoroscopy of Multiple Coronary Arteries using Low Osmolar Contrast (ICD-10-PCS; 2024-05-06 07:30)
DX: I21.4 Non-ST elevation (NSTEMI) myocardial infarction (principal); E78.5 Hyperlipidemia, unspecified; K21.9 Gastro-esophageal reflux disease without esophagitis; Z95.5 Presence of coronary angioplasty implant and graft; I25.2 Old myocardial infarction; E11.9 Type 2 diabetes mellitus without complications; I16.0 Hypertensive urgency; Z87.891 Personal history of nicotine dependence; I25.10 Atherosclerotic heart disease of native coronary artery without angina pectoris; Z79.84 Long term (current) use of oral hypoglycemic drugs; Z79.82 Long term (current) use of aspirin; Z79.899 Other long term (current) drug therapy; Z82.49 Family history of ischemic heart disease and other diseases of the circulatory system; J44.9 Chronic obstructive pulmonary disease, unspecified; Z85.51 Personal history of malignant neoplasm of bladder; Z88.2 Allergy status to sulfonamides; Z88.1 Allergy status to other antibiotic agents
CPT/HCPCS: 36415; 71046; 80048; 80053; 80061; 83735; 84484; 85025; 85610; 85730; 92978; 93005; 93306; 93458; 96365; 96375; 99285